=== PATIENT | female | born 1950 | race Caucasian/White ===

== ENCOUNTER 2017-02-28 11:02 | Emergency (ER) | payer MEDICARE, MEDICAID ==
[2017-02-28 11:21] VITALS: BP 137/80
--- NOTE | 2017-02-28 11:25 | EDM.PDOC ---
ED HPI GENERAL MEDICAL PROBLEM - General Chief Complaint: Lower Extremity Injury/Pain Stated Complaint: L KNEE PAIN AND SWELLING Time Seen by Provider: 02/28/17 11:22 Source of Information: Reports: Patient History Limitations: Reports: No Limitations - History of Present Illness INITIAL COMMENTS - FREE TEXT/NARRATIVE: 67-year-old female presents for evaluation and treatment of left knee pain and swelling. Reports her left knee pain started yesterday. She was favoring the left knee. She says that she went to dialysis today and the pain intensified. She also noticed swelling to the left knee. Reports that the pain is located to the left, anterior lateral aspect as well as the posterior medial aspect. She denies any trauma to the knee. She gets occasional pains in many but has never had anything like this before. Reports that she will occasionally get joint swelling and pain but it resolved on its own. She has taken Tylenol but the pain has intensified. She has been unable to bear weight due to the significant pain. She denies any redness or warmth to the knee. Denies any trauma or previous surgeries to the knee. Patient is a dialysis patient with a history of bladder cancer, atrial fibrillation, diabetes and arthritis. She is currently on Coumadin, aspirin and allopurinol among other medications. Duration: Getting Worse Location: Reports: Lower Extremity, Left Worsens with: Reports: Movement Treatments PIECE HAND: Reports: Acetaminophen Left Knee Pain Score (Numeric/FACES): 10 - Related Data Allergies Allergy/AdvReac Type Severity Reaction Status Date / Time ciprofloxacin [From Cipro] Allergy Blisters Verified 08/27/16 12:28 ciprofloxacin HCl Allergy Blisters Verified 08/27/16 12:28 [From Cipro] Home Meds: Home Meds Allopurinol [Zyloprim] 100 mg PO DAILY 10/08/14 [History] Darbepoetin Burke in Polysorbat [Aranesp] 50 mcg IJ ASDIRECTED 10/08/14 [History] Furosemide [Lasix] 40 mg PO BID 10/08/14 [History] Lisinopril 40 mg PO DAILY 10/08/14 [History] Metoprolol Tartrate 75 mg PO BID 10/08/14 [History] Pravastatin [Pravachol] 40 mg PO DAILY 10/08/14 [History] Vits #90/Iron Fum/FA [ Formula] 1 each PO DAILY 10/08/14 [ History] Verapamil HCl 360 mg PO DAILY 10/08/14 [History] amLODIPine [Norvasc] 5 mg PO DAILY 10/08/14 [History] Sodium Bicarbonate 648 mg PO DAILY 02/18/15 [History] Calcium Acetate [PhosLo] 2,001 mg PO ASDIRECTED 04/14/16 [History] Ferrous Sulfate 650 mg PO DAILY 04/14/16 [History] Iron Sucrose Complex [Venofer] 100 mg IV WEEKLY 04/14/16 [History] Paricalcitol 6 mcg IJ TUTHSA 04/14/16 [History] Acetaminophen 650 mg PO ASDIRECTED PRN 04/21/16 [History] Aspirin [Halfprin] 81 mg PO ASDIRECTED 04/21/16 [History] Cyanocobalamin (Vitamin B-12) [B-12] 500 mcg PO BID 04/21/16 [History] Acetaminophen/oxyCODONE [Percocet 325-5 MG] 1 tab PO Q6H PRN #20 tablet [Rx] Warfarin [Coumadin] 5 mg PO DAILY 02/28/17 [History] Past Medical History HEENT History: Reports: Impaired Vision Other HEENT History: wears eyeglasses Cardiovascular History: Reports: Afib, CAD, Heart Failure, High Cholesterol, Hypertension Respiratory History: Reports: SOB Other Respiratory History: Pt states the last couple month she's had more trouble breathing and fld. on her lungs. States worked at [employer] and worked with many chemicals. Gastrointestinal History: Reports: None Genitourinary History: Reports: Dialysis, Other (See Below) Other Genitourinary History: Bladder surgery [employer] History: Reports: Musculoskeletal History: Reports: Arthritis Neurological History: Reports: None Other Neuro History: Pt states she has a bad back but has never had surgery. Psychiatric History: Reports: None Other Psychiatric History: states was depressed when finding out of having cancer. Endocrine/Metabolic History: Reports: Diabetes, Type II, Obesity/BMI 30+ Other Endocrine/Metabolic History: Pt states DM II resolved since gastric bypass surgery. Hematologic History: Reports: Anemia Other Hematologic History: Pt thinks anesthesia may have caused sports on her arms. Immunologic History: Reports: None Oncologic (Cancer) History: Reports: Bladder Other Oncologic History: Pt completed chemo. Dermatologic History: Reports: Other (See Below) Other Dermatologic History: bed sore on cocyx - Infectious Disease History Infectious Disease History: Reports: C-Difficile, Chicken Pox, Measles, Rheumatic Fever, Scarlet Fever - Past Surgical History Head Surgeries/Procedures: Reports: None Cardiovascular Surgical History: Reports: Coronary Artery Stent, Vascular Surgery GI Surgical History: Reports: Bariatric Procedure, Other (See Below) Female Surgical History: Reports: Section, Hysterectomy, Oophorectomy Social & Family History - Family History Family Medical History: Noncontributory Cardiac: Reports: Aneurysm, [place] Other Cardiac Family History: Father of [place]. Sister of aneurysm. - Tobacco Use Smoking Status *Q: Never Smoker Years of Tobacco use: 20 Packs/Tins Daily: 1.3 Used Tobacco, but Quit: Yes Month Tobacco Last Used: 1996 Second Hand Smoke Exposure: No - Caffeine Use Caffeine Use: Reports: Coffee - Alcohol Use Days Per Week of Alcohol Use: 0 - Recreational Drug Use Recreational Drug Use: No - Living Situation & Occupation Living situation: Reports: , Alone Occupation: Disabled Review of Systems - Review of Systems Review Of Systems: See Below Musculoskeletal: Reports: Joint Pain (left knee), Joint Swelling (left knee), Other (no calf pain) Skin: Denies: Erythema Neurological: Reports: Difficulty Walking (unable to walk due to pain) Trauma Exam - Physical Exam Exam: See Below Exam Limited By: No Limitations General Appearance: Reports: Alert, WD/WN, No Apparent Distress Respiratory Exam: Reports: No Respiratory Distress Cardiovascular: Reports: Normal Peripheral Pulses (2+ dorsalis pedis pulses bilterally), Regular Rate, Rhythm Extremities: Joint Effusion (left knee), Pain with Movement (pain with flexion and extension of the knee), Tenderness (left anterior lateral knee and posterior medial aspect), Unable to Bear Weight (initally, improved after percoocet ), Other (right knee measures 46 cm in the flexed position; left knee is 50cm in the flexed position) Neurologic: Reports: Alert, Normal Mood/Affect Skin: Reports: Normal Color, Warm/Dry Course - Vital Signs Last Recorded V/S: Last Vital Signs Temp 36.9 C 02/28/17 11:18 Pulse 67 02/28/17 11:18 Resp 20 02/28/17 11:18 BP 137/80 02/28/17 11:18 Pulse Ox 96 02/28/17 11:18 - Orders/Labs/Meds Labs: Laboratory Tests 02/28/17 02/28/17 02/28/17 Range/Units 11:51 11:55 11:55 WBC 3.27 L (3.98-10.04) K/mm3 RBC 3.14 L (3.98-5.22) M/mm3 Hgb 10.1 L (11.2-15.7) gm/L Hct 33.0 L (34.1-44.9) % MCV 105.1 H (79.4-94.8) fl MCH 32.2 (25.6-32.2) pg MCHC 30.6 L (32.2-35.5) g/dl RDW Std Deviation 49.2 H (36.4-46.3) fL Plt Count 176 L (182-369) K/mm3 MPV 9.3 L (9.4-12.3) fl Neut % (Auto) 76.7 H (34.0-71.1) % Lymph % (Auto) 8.6 L (19.3-51.7) % [place] % (Auto) 11.3 (4.7-12.5) % Eos % (Auto) 2.8 (0.7-5.8) Baso % (Auto) 0.3 (0.1-1.2) % Neut # (Auto) 2.51 (1.56-6.13) K/mm3 Lymph # (Auto) 0.28 L (1.18-3.74) K/mm3 [place] # (Auto) 0.37 H (0.24-0.36) K/mm3 Eos # (Auto) 0.09 (0.04-0.36) K/mm3 Baso # (Auto) 0.01 (0.01-0.08) K/mm3 Manual Slide Review PT 14.3 H (8.0-13.0) SECONDS INR 1.29 Sodium (136-145) mEq/L Potassium (3.5-5.1) mEq/L Chloride (98-107) mEq/L Carbon Dioxide (21-32) mEq/L Anion Gap (5-15) BUN (7-18) mg/dL Creatinine (0.55-1.02) mg/dL Est Cr Clr Drug Dosing mL/min Estimated GFR (MDRD) (>60) mL/min BUN/Creatinine Ratio (14-18) Glucose (80-115) mg/dL POC Glucose 104 (80-115) mg/dL Uric Acid (2.6-6.0) mg/dL Calcium (8.5-10.1) mg/dL Total Bilirubin (0.2-1.0) mg/dL AST (15-37) U/L ALT (14-59) U/L Alkaline Phosphatase (46-116) U/L C-Reactive Protein (<1.0) mg/dL Total Protein (6.4-8.2) g/dl Albumin (3.4-5.0) g/dl Globulin gm/dL Albumin/Globulin Ratio (1-2) // Range/Units 11:55 WBC (3.98-10.04) K/mm3 RBC (3.98-5.22) M/mm3 Hgb (11.2-15.7) gm/L Hct (34.1-44.9) % MCV (79.4-94.8) fl MCH (25.6-32.2) pg MCHC (32.2-35.5) g/dl RDW Std Deviation (36.4-46.3) fL Plt Count (182-369) K/mm3 MPV (9.4-12.3) fl Neut % (Auto) (34.0-71.1) % Lymph % (Auto) (19.3-51.7) % [place] % (Auto) (4.7-12.5) % Eos % (Auto) (0.7-5.8) Baso % (Auto) (0.1-1.2) % Neut # (Auto) (1.56-6.13) K/mm3 Lymph # (Auto) (1.18-3.74) K/mm3 [place] # (Auto) (0.24-0.36) K/mm3 Eos # (Auto) (0.04-0.36) K/mm3 Baso # (Auto) (0.01-0.08) K/mm3 Manual Slide Review PT (8.0-13.0) SECONDS INR Sodium 141 (136-145) mEq/L Potassium 4.2 (3.5-5.1) mEq/L Chloride 99 (98-107) mEq/L Carbon Dioxide 35 H (21-32) mEq/L Anion Gap 11.2 (5-15) BUN 21 H (7-18) mg/dL Creatinine 2.8 H (0.55-1.02) mg/dL Est Cr Clr Drug Dosing 18.02 mL/min Estimated GFR (MDRD) 17 (>60) mL/min BUN/Creatinine Ratio 7.5 L (14-18) Glucose 102 (80-115) mg/dL POC Glucose (80-115) mg/dL Uric Acid 1.9 L (2.6-6.0) mg/dL Calcium 8.5 (8.5-10.1) mg/dL Total Bilirubin 0.5 (0.2-1.0) mg/dL AST 28 (15-37) U/L ALT 27 (14-59) U/L Alkaline Phosphatase 81 (46-116) U/L C-Reactive Protein 3.4 H* (<1.0) mg/dL Total Protein 7.2 (6.4-8.2) g/dl Albumin 3.4 (3.4-5.0) g/dl Globulin 3.8 gm/dL Albumin/Globulin Ratio 0.9 L (1-2) Meds: Medications Discontinued Medications Generic Name Dose Route Start Last Admin Trade Name Randa PRN Reason Stop Dose Admin Oxycodone/Acetaminophen 1 tab 02/28/17 11:36 02/28/17 11:52 Percocet 325-5 Mg PO 02/28/17 11:37 1 tab ONETIME ONE Administration - Radiology Interpretation Free Text/Narrative:: 3 view of the left knee reviewed by myself and Dr. Wiley. Degenerative changes. High riding patella. calcified vessels. - Re-Assessments/Exams Free Text/Narrative Re-Assessment/Exam: 02/28/17 13:20 The patient's lab studies have returned. White blood cell count 3.27, hemoglobin 10.1 and hematocrit 33.0. Platelets are 176. Sodium 141 potassium 4.2 chloride of 99. Anion gap is low at 1.2. Creatinine is 2.8. Glucose is 102. CRP is mildly elevated at 3.4. Uric acid is low at 1.9. PT is 14.3, INR 1.29. I reviewed the lab and imaging results with the patient. I do not feel that she ruptured her quadriceps tendon which is causing a high riding patella. I feel this is likely a chronic change for her. Her knee shows severe degenerative change and I feel that the arthritis is likely the cause for the effusion and pain today. She has a walker at home which she can utilize if she needs. I will prescribe her with some medication for the pain. I would like her to follow up with her PCP, she may likely need to see ortho in the future. Discharge instructions as documented. 03/03/17 14:12 Departure - Departure Time of Disposition: 13:27 Disposition: Home, Self-Care 01 Condition: fair Clinical Impression: Knee effusion, left, Degenerative arthritis of left knee - Discharge Information Prescriptions: Acetaminophen/oxyCODONE [Percocet 325-5 MG] 1 tab PO Q6H PRN #20 tablet PRN Reason: Pain Instructions: Knee Effusion, [id number], Arthritis, [id number] Referrals: Denny Balderas MD [Primary Care Provider] - Forms: ED Department Discharge Additional Instructions: You were given medication in the ER that can affect your ability to drive and operate machinery. No driving or operating machinery within 12 hours of taking prescription narcotic pain medication. Use your walker for safety and for comfort. Ice the knee 3 to 4 times a day for 10-15 minutes. Followup primary care provider in one to 2 weeks if your symptoms do not improve. EDINSON bandage to the knee to help with swelling. Percocet 5-325mg tabs1-2 tabs every 4-6 hours as needed for severe pain. Do not drive or operate machinery 12 hours of taking the Percocet. Percocet habit- forming, I recommend you take as few of these as needed to control your pain. Do not take more than 4 g of Tylenol from all sources in one day. Please return to the ER if your symptoms change or worsen.
[2017-02-28] MEDS ORDERED: Acetaminophen/oxyCODONE 325-5 MG Tab PO ONE (11:36)
--- NOTE | 2017-03-01 08:17 | CR ---
Left knee: AP, lateral and sunrise patellar views of the left knee were obtained. Comparison: No previous knee exam is available. Mild medial joint space narrowing is noted. Severe joint space narrowing is noted within the lateral patellofemoral joint. Osteophytes are noted off the medial and lateral knee as well as off the patella. Detached bony density seen off the lateral patella likely representing detached spur or old fracture. Bony structures are osteopenic. Small joint effusion is seen. Vascular calcification is noted. No acute abnormality is seen. Impression: 1. Degenerative change as noted above. Small joint effusion and vascular calcification. Osteopenia also noted. Diagnostic code #3
== END 2017-02-28 13:48 | disposition home or self-care (01) ==
LOC: JD.ED 11:02
DX: M25.462 Effusion, left knee (principal); M17.12 Unilateral primary osteoarthritis, left knee; I11.0 Hypertensive heart disease with heart failure; I50.9 Heart failure, unspecified; I25.10 Atherosclerotic heart disease of native coronary artery without angina pectoris; I48.91 Unspecified atrial fibrillation; M19.90 Unspecified osteoarthritis, unspecified site; F32.9 Major depressive disorder, single episode, unspecified; E11.9 Type 2 diabetes mellitus without complications; E66.9 Obesity, unspecified; Z88.1 Allergy status to other antibiotic agents; Z79.899 Other long term (current) drug therapy; Z79.01 Long term (current) use of anticoagulants; Z90.710 Acquired absence of both cervix and uterus; Z68.30 Body mass index [BMI] 30.0-30.9, adult
CPT/HCPCS: 36415; 73562; 80053; 82962; 84550; 85025; 85610; 86140; 99284; A9270; 99283

== ENCOUNTER 2017-10-09 17:41 | Emergency (ER) | payer MEDICARE, MEDICAID ==
[2017-10-09] MEDS ORDERED: Sodium Chloride 0.9% 10 ML Syringe FLUSH PRN (18:32)
--- NOTE | 2017-10-09 20:21 | EDM.PDOC ---
ED HPI GENERAL MEDICAL PROBLEM - General Chief Complaint: Cardiovascular Problem Stated Complaint: LOW HEMOGLOBIN SENT BY DR LIRA Time Seen by Provider: 10/09/17 18:10 Source of Information: Reports: Patient, Old Records History Limitations: Reports: No Limitations - History of Present Illness INITIAL COMMENTS - FREE TEXT/NARRATIVE: 67-year-old female presents for evaluation and treatment of the low hemoglobin. Patient is chronically ill with kidney failure and bladder cancer. She is on dialysis with her runs on Thursday, and Thursday. She states that she had her labs drawn yesterday while at dialysis. She was called today and was told that her hemoglobin was 6. Reports her hemoglobin normally runs around 8. She reports associated symptoms of weakness, fatigue, dyspnea on exertion and vision changes. She states she experiences vision changes when her hemoglobin is low. She reports she's been having hematuria for the last few weeks. She has been on antibiotics for urinary tract infections or hematuria has persisted. No shortness of breath, worse than normal, chest pain or syncope. Patient was previously on Coumadin for atrial fibrillation. She has now been off for several weeks due to the hematuria. - Related Data Allergies Allergy/AdvReac Type Severity Reaction Status Date / Time ciprofloxacin [From Cipro] Allergy Blisters Verified 08/27/16 12:28 ciprofloxacin HCl Allergy Blisters Verified 08/27/16 12:28 [From Cipro] Home Meds: Home Meds Allopurinol [Zyloprim] 100 mg PO DAILY 10/08/14 [History] Darbepoetin Burke in Polysorbat [Aranesp] 50 mcg IJ ASDIRECTED 10/08/14 [History] Furosemide [Lasix] 40 mg PO BID 10/08/14 [History] Lisinopril 40 mg PO DAILY 10/08/14 [History] Metoprolol Tartrate 75 mg PO BID 10/08/14 [History] Pravastatin [Pravachol] 40 mg PO DAILY 10/08/14 [History] Vit 90/Iron Fum/Folic [ Formula] 1 each PO DAILY 10/08/14 [ History] Verapamil HCl 360 mg PO DAILY 10/08/14 [History] amLODIPine [Norvasc] 5 mg PO DAILY 10/08/14 [History] Sodium Bicarbonate 648 mg PO DAILY 02/18/15 [History] Calcium Acetate [PhosLo] 2,001 mg PO ASDIRECTED 04/14/16 [History] Ferrous Sulfate 650 mg PO DAILY 04/14/16 [History] Iron Sucrose Complex [Venofer] 100 mg IV WEEKLY 04/14/16 [History] Paricalcitol 6 mcg IJ TUTHSA 04/14/16 [History] Acetaminophen 650 mg PO ASDIRECTED PRN 04/21/16 [History] Aspirin [Halfprin] 81 mg PO ASDIRECTED 04/21/16 [History] Cyanocobalamin (Vitamin B-12) [B-12] 500 mcg PO BID 04/21/16 [History] Acetaminophen/oxyCODONE [Percocet 325-5 MG] 1 tab PO Q6H PRN #20 tablet [Rx] Warfarin [Coumadin] 5 mg PO DAILY 02/28/17 [History] Past Medical History HEENT History: Reports: Impaired Vision Other HEENT History: wears eyeglasses Cardiovascular History: Reports: Afib, CAD, Heart Failure, High Cholesterol, Hypertension Respiratory History: Reports: SOB Other Respiratory History: Pt states the last couple month she's had more trouble breathing and fld. on her lungs. States worked at [employer] and worked with many chemicals. Gastrointestinal History: Reports: None Genitourinary History: Reports: Dialysis, Other (See Below) Other Genitourinary History: Bladder surgery [employer] History: Reports: Musculoskeletal History: Reports: Arthritis Neurological History: Reports: None Other Neuro History: Pt states she has a bad back but has never had surgery. Psychiatric History: Reports: None Other Psychiatric History: states was depressed when finding out of having cancer. Endocrine/Metabolic History: Reports: Diabetes, Type II, Obesity/BMI 30+ Other Endocrine/Metabolic History: Pt states DM II resolved since gastric bypass surgery. Hematologic History: Reports: Anemia, Blood Transfusion(s) Other Hematologic History: Pt thinks anesthesia may have caused sports on her arms. Immunologic History: Reports: None Oncologic (Cancer) History: Reports: Bladder Other Oncologic History: Pt completed chemo/radiation. Dermatologic History: Reports: Other (See Below) Other Dermatologic History: bed sore on cocyx - Infectious Disease History Infectious Disease History: Reports: C-Difficile, Chicken Pox, Measles, Rheumatic Fever, Scarlet Fever - Past Surgical History Head Surgeries/Procedures: Reports: None Cardiovascular Surgical History: Reports: Coronary Artery Stent, Vascular Surgery GI Surgical History: Reports: Bariatric Procedure, Other (See Below) Female Surgical History: Reports: Section, Hysterectomy, Oophorectomy Social & Family History - Family History Family Medical History: Noncontributory Cardiac: Reports: Aneurysm, [place] Other Cardiac Family History: Father of [place]. Sister of aneurysm. - Tobacco Use Smoking Status *Q: Never Smoker Years of Tobacco use: 20 Packs/Tins Daily: 1.3 Used Tobacco, but Quit: Yes Month Tobacco Last Used: 1996 Second Hand Smoke Exposure: No - Caffeine Use Caffeine Use: Reports: Coffee - Alcohol Use Days Per Week of Alcohol Use: 0 - Recreational Drug Use Recreational Drug Use: No - Living Situation & Occupation Living situation: Reports: , Alone Occupation: Disabled ED ROS GENERAL - Review of Systems Review Of Systems: See Below HEENT: Reports: Vision Change Respiratory: Reports: Shortness of Breath (chronic, no change) Cardiovascular: Denies: Chest Pain, Syncope : Reports: Hematuria Neurological: Denies: Syncope ED EXAM, GENERAL - Physical Exam Exam: See Below Exam Limited By: No Limitations General Appearance: Alert, WD/WN, No Apparent Distress, Obese Respiratory/Chest: No Respiratory Distress, Lungs Clear, Normal Breath Sounds Cardiovascular: Normal Peripheral Pulses, Regular Rate, Rhythm, Systolic Murmur (grade 2) GI/Abdominal: Soft, Non-Tender Neurological: Alert, Oriented, Normal Cognition Psychiatric: Normal Affect, Normal Mood Skin Exam: Warm, Dry, Pallor Course - Vital Signs Last Recorded V/S: Last Vital Signs Temp 36.3 C 10/09/17 17:50 Pulse 79 10/09/17 17:50 Resp 16 10/09/17 17:50 BP 116/60 10/09/17 17:50 Pulse Ox 97 10/09/17 17:50 Orthostatic Blood Pressure [ 102/56 Standing] Orthostatic Blood Pressure [ 110/58 Sitting] Orthostatic Blood Pressure [ 102/54 Supine] - Orders/Labs/Meds Orders: Active Orders 24 hr Category Date Time Status Cardiac Monitoring [RC] . DIRECTED Care 10/09/17 19:46 Active EKG 12 Lead [EKG Documentation Completion] [RC] STAT Care 10/09/17 19:46 Active Orthostatic Vital Signs [RC] ASDIRECTED Care 10/09/17 18:32 Active Peripheral IV Care [RC] . DIRECTED Care 10/09/17 18:32 Active CALCIUM, IONIZED [REF] Stat Lab 10/09/17 19:50 Received UA W/MICROSCOPIC [URIN] Stat Lab 10/09/17 18:32 Uncollected Sodium Chloride 0.9% [Saline Flush] Med 10/09/17 18:32 Active 10 ml FLUSH ASDIRECTED PRN Peripheral IV Insertion Adult [OM.PC] Routine Oth 10/09/17 18:32 Ordered Medication Orders Sodium Chloride (Saline Flush) 10 ml FLUSH ASDIRECTED PRN PRN Reason: Keep Vein Open Labs: Laboratory Tests 10/09/17 10/09/17 10/09/17 Range/Units 18:55 18:55 18:55 WBC 3.45 L (3.98-10.04) K/mm3 RBC 1.96 L (3.98-5.22) M/mm3 Hgb 6.5 L* (11.2-15.7) gm/L Hct 21.2 L (34.1-44.9) % MCV 108.2 H (79.4-94.8) fl MCH 33.2 H (25.6-32.2) pg MCHC 30.7 L (32.2-35.5) g/dl RDW Std Deviation 65.1 H (36.4-46.3) fL Plt Count 193 (182-369) K/mm3 MPV 9.0 L (9.4-12.3) fl Neutrophils % (Manual) 73 H (40-60) % Band Neutrophils % 1 (0-10) % Lymphocytes % (Manual) 19 L (20-40) % Atypical Lymphs % 0 % Monocytes % (Manual) 4 (2-10) % Eosinophils % (Manual) 2 (0.7-5.8) % Basophils % (Manual) 1 (0.1-1.2) Platelet Estimate Adequate Polychromasia 2+ moderate Hypochromasia 1+ slight Anisocytosis 2+ moderate Macrocytosis 1+ slight RBC Morph Comment Not Reportable PT 9.9 (8.0-13.0) SECONDS INR 0.91 Sodium 138 (136-145) mEq/L Potassium 4.6 (3.5-5.1) mEq/L Chloride 96 L (98-107) mEq/L Carbon Dioxide 26 (21-32) mEq/L Anion Gap 20.6 H (5-15) BUN 68 H (7-18) mg/dL Creatinine 8.2 H (0.55-1.02) mg/dL Est Cr Clr Drug Dosing 6.40 mL/min Estimated GFR (MDRD) 5 (>60) mL/min BUN/Creatinine Ratio 8.3 L (14-18) Glucose 98 (80-115) mg/dL Calcium 5.8 L* (8.5-10.1) mg/dL Phosphorus (2.6-4.7) mg/dL Magnesium (1.8-2.4) mg/dl Total Bilirubin 0.3 (0.2-1.0) mg/dL AST 27 (15-37) U/L ALT 34 (14-59) U/L Alkaline Phosphatase 84 (46-116) U/L Total Protein 6.7 (6.4-8.2) g/dl Albumin 3.4 (3.4-5.0) g/dl Globulin 3.3 gm/dL Albumin/Globulin Ratio 1.0 (1-2) 10/09/17 Range/Units 18:55 WBC (3.98-10.04) K/mm3 RBC (3.98-5.22) M/mm3 Hgb (11.2-15.7) gm/L Hct (34.1-44.9) % MCV (79.4-94.8) fl MCH (25.6-32.2) pg MCHC (32.2-35.5) g/dl RDW Std Deviation (36.4-46.3) fL Plt Count (182-369) K/mm3 MPV (9.4-12.3) fl Neutrophils % (Manual) (40-60) % Band Neutrophils % (0-10) % Lymphocytes % (Manual) (20-40) % Atypical Lymphs % % Monocytes % (Manual) (2-10) % Eosinophils % (Manual) (0.7-5.8) % Basophils % (Manual) (0.1-1.2) Platelet Estimate Polychromasia Hypochromasia Anisocytosis Macrocytosis RBC Morph Comment PT (8.0-13.0) SECONDS INR Sodium (136-145) mEq/L Potassium (3.5-5.1) mEq/L Chloride (98-107) mEq/L Carbon Dioxide (21-32) mEq/L Anion Gap (5-15) BUN (7-18) mg/dL Creatinine (0.55-1.02) mg/dL Est Cr Clr Drug Dosing mL/min Estimated GFR (MDRD) (>60) mL/min BUN/Creatinine Ratio (14-18) Glucose (80-115) mg/dL Calcium (8.5-10.1) mg/dL Phosphorus 8.1 H (2.6-4.7) mg/dL Magnesium 1.9 (1.8-2.4) mg/dl Total Bilirubin (0.2-1.0) mg/dL AST (15-37) U/L ALT (14-59) U/L Alkaline Phosphatase (46-116) U/L Total Protein (6.4-8.2) g/dl Albumin (3.4-5.0) g/dl Globulin gm/dL Albumin/Globulin Ratio (1-2) Meds: Medications Generic Name Dose Route Start Last Admin Trade Name Freq PRN Reason Stop Dose Admin Sodium Chloride 10 ml 10/09/17 18:32 Saline Flush FLUSH ASDIRECTED PRN Keep Vein Open Discontinued Medications Generic Name Dose Route Start Last Admin Trade Name Freq PRN Reason Stop Dose Admin Calcium Gluconate 1 gm 10/09/17 20:32 Calcium Gluconate IVPUSH 10/09/17 20:33 ONETIME ONE Calcium Gluconate 1 gm 10/09/17 20:45 Calcium Gluconate IVPUSH 10/09/17 20:46 ONETIME ONE - Re-Assessments/Exams Free Text/Narrative Re-Assessment/Exam: 10/09/17 20:[address] Orosco, ER physician, recommended giving 2 grams calcium gluconate IV. Given that patient is showing prolonged QT on EKG do feel she should be admitted. Due to her being on dialysis and having antibodies to blood she will not be a good admission here in [place]. I discussed this with her. Reports she's been admitted to [facility] in [place] in the past. Her urologist is Dr. Ulrich. Case discussed with Dr. Fontanez, hospitalist on-call at [facility] in [place]. She agrees to the admission. We will send her by ground ambulance so she can have cardiac monitoring. Patient reports she is a full code. Departure - Departure Time of Disposition: 20:55 Disposition: DC/Tfer to Acute Hospital 02 Reason for Transfer *Q: Other (antibiodies to blood, dialysis patient) Condition: Serious Clinical Impression: Hypocalcemia, Prolonged QT interval, Chronic renal insufficiency, stage IV ( severe), End stage renal disease on dialysis Anemia Qualifiers: Anemia type: other cause Referrals: Denny Lira MD [Primary Care Provider] - Forms: ED Department Discharge Additional Instructions: Patient to be transported to [facility]. Dr. Fontanez accepting. She will be a direct admission. - My Orders Last 24 Hours: My Active Orders 10/09/17 18:32 Orthostatic Vital Signs [RC] ASDIRECTED Peripheral IV Care [RC] . DIRECTED UA W/MICROSCOPIC [URIN] Stat Sodium Chloride 0.9% [Saline Flush] 10 ml FLUSH ASDIRECTED PRN Peripheral IV Insertion Adult [OM.PC] Routine 10/09/17 19:46 Cardiac Monitoring [RC] . DIRECTED EKG 12 Lead [EKG Documentation Completion] [RC] STAT 10/09/17 19:50 CALCIUM, IONIZED [REF] Stat - Assessment/Plan Last 24 Hours: My Active Orders 10/09/17 18:32 Orthostatic Vital Signs [RC] ASDIRECTED Peripheral IV Care [RC] . DIRECTED UA W/MICROSCOPIC [URIN] Stat Sodium Chloride 0.9% [Saline Flush] 10 ml FLUSH ASDIRECTED PRN Peripheral IV Insertion Adult [OM.PC] Routine 10/09/17 19:46 Cardiac Monitoring [RC] . DIRECTED EKG 12 Lead [EKG Documentation Completion] [RC] STAT 10/09/17 19:50 CALCIUM, IONIZED [REF] Stat
[2017-10-09] MEDS ORDERED: Calcium Gluconate 10% 1 GM/10 ML SDV IVPUSH ONE ×2 (20:32→20:45)
[2017-10-09] MEDS ORDERED: Sodium Chloride 0.9% 100 ML IV SCH (21:00)
[2017-10-09 21:39] VITALS: BP 115/46
== END 2017-10-09 21:25 ==
LOC: JD.ED 17:41
DX: I13.2 Hypertensive heart and chronic kidney disease with heart failure and with stage 5 chronic kidney disease, or end stage renal disease (principal); E11.22 Type 2 diabetes mellitus with diabetic chronic kidney disease; N18.6 End stage renal disease; I50.9 Heart failure, unspecified; D64.9 Anemia, unspecified; E83.51 Hypocalcemia; I25.10 Atherosclerotic heart disease of native coronary artery without angina pectoris; E78.00 Pure hypercholesterolemia, unspecified; Z99.2 Dependence on renal dialysis; Z95.5 Presence of coronary angioplasty implant and graft; Z87.891 Personal history of nicotine dependence; Z79.82 Long term (current) use of aspirin; Z79.01 Long term (current) use of anticoagulants; Z79.899 Other long term (current) drug therapy; Z88.1 Allergy status to other antibiotic agents
CPT/HCPCS: 36415; 80053; 82330; 83735; 84100; 85025; 85610; 93005; 96374; 99285; J0610; J7030; J7050

== ENCOUNTER 2017-11-03 12:33 | Emergency (ER) | payer MEDICARE, MEDICAID ==
[2017-11-03 12:55] VITALS: BP 106/82
--- NOTE | 2017-11-03 14:07 | EDM.PDOC ---
ED HPI GENERAL MEDICAL PROBLEM - General Chief Complaint: IV Access Related Stated Complaint: BLEEDING FROM DIALYSIS Time Seen by Provider: 11/03/17 12:53 Source of Information: Reports: Patient History Limitations: Reports: No Limitations - History of Present Illness INITIAL COMMENTS - FREE TEXT/NARRATIVE: The patient presents after dialysis for a bleeding shunt to her left arm. She left a few minutes ago and it was bleeding and it has continued. She could not get it stopped. She has no other complaints. Onset: Sudden Duration: Minutes: Location: Reports: Upper Extremity, Right (upper arm) Severity: Moderate Improves with: Reports: None Worsens with: Reports: None Associated Symptoms: Reports: No Other Symptoms - Related Data Allergies Allergy/AdvReac Type Severity Reaction Status Date / Time ciprofloxacin [From Cipro] Allergy Blisters Verified 11/03/17 12:49 ciprofloxacin HCl Allergy Blisters Verified 11/03/17 12:49 [From Cipro] Home Meds: Home Meds Allopurinol [Zyloprim] 100 mg PO DAILY 10/08/14 [History] Darbepoetin Burke in Polysorbat [Aranesp] 50 mcg IJ ASDIRECTED 10/08/14 [History] Furosemide [Lasix] 40 mg PO BID 10/08/14 [History] Lisinopril 40 mg PO DAILY 10/08/14 [History] Metoprolol Tartrate 75 mg PO BID 10/08/14 [History] Pravastatin [Pravachol] 40 mg PO DAILY 10/08/14 [History] Vit 90/Iron Fum/Folic [ Formula] 1 each PO DAILY 10/08/14 [ History] Verapamil HCl 360 mg PO DAILY 10/08/14 [History] amLODIPine [Norvasc] 5 mg PO DAILY 10/08/14 [History] Sodium Bicarbonate 648 mg PO DAILY 02/18/15 [History] Calcium Acetate [PhosLo] 2,001 mg PO ASDIRECTED 04/14/16 [History] Ferrous Sulfate 650 mg PO DAILY 04/14/16 [History] Iron Sucrose Complex [Venofer] 100 mg IV WEEKLY 04/14/16 [History] Paricalcitol 6 mcg IJ TUTHSA 04/14/16 [History] Acetaminophen 650 mg PO ASDIRECTED PRN 04/21/16 [History] Aspirin [Halfprin] 81 mg PO ASDIRECTED 04/21/16 [History] Cyanocobalamin (Vitamin B-12) [B-12] 500 mcg PO BID 04/21/16 [History] Acetaminophen/oxyCODONE [Percocet 325-5 MG] 1 tab PO Q6H PRN #20 tablet [Rx] Warfarin [Coumadin] 5 mg PO DAILY 02/28/17 [History] Past Medical History HEENT History: Reports: Impaired Vision Other HEENT History: wears eyeglasses Cardiovascular History: Reports: Afib, CAD, Heart Failure, High Cholesterol, Hypertension Respiratory History: Reports: SOB Other Respiratory History: Pt states the last couple month she's had more trouble breathing and fld. on her lungs. 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 Gastrointestinal History: Reports: None Genitourinary History: Reports: Dialysis, Other (See Below) Other Genitourinary History: Bladder surgery [employer] History: Reports: Musculoskeletal History: Reports: Arthritis Neurological History: Reports: None Other Neuro History: Pt states she has a bad back but has never had surgery. Psychiatric History: Reports: None Other Psychiatric History: states was depressed when finding out of having cancer. Endocrine/Metabolic History: Reports: Diabetes, Type II, Obesity/BMI 30+ Other Endocrine/Metabolic History: Pt states DM II resolved since gastric bypass surgery. Hematologic History: Reports: Anemia, Blood Transfusion(s) Other Hematologic History: Pt thinks anesthesia may have caused sports on her arms. Immunologic History: Reports: None Oncologic (Cancer) History: Reports: Bladder Other Oncologic History: Pt completed chemo/radiation. Dermatologic History: Reports: Other (See Below) Other Dermatologic History: bed sore on cocyx - Infectious Disease History Infectious Disease History: Reports: C-Difficile, Chicken Pox, Measles, Rheumatic Fever, Scarlet Fever - Past Surgical History Head Surgeries/Procedures: Reports: None Cardiovascular Surgical History: Reports: Coronary Artery Stent, Vascular Surgery GI Surgical History: Reports: Bariatric Procedure, Other (See Below) Female Surgical History: Reports: Section, Hysterectomy, Oophorectomy Social & Family History - Family History Family Medical History: Noncontributory Cardiac: Reports: Aneurysm, [place] Other Cardiac Family History: Father of [place]. Sister of aneurysm. - Tobacco Use Smoking Status *Q: Never Smoker Years of Tobacco use: 20 Packs/Tins Daily: 1.3 Used Tobacco, but Quit: Yes Month Tobacco Last Used: 1996 Second Hand Smoke Exposure: No - Caffeine Use Caffeine Use: Reports: Coffee - Alcohol Use Days Per Week of Alcohol Use: 0 - Recreational Drug Use Recreational Drug Use: No - Living Situation & Occupation Living situation: Reports: , Alone Occupation: Disabled ED ROS GENERAL - Review of Systems Review Of Systems: See Below Constitutional: Reports: No Symptoms HEENT: Reports: No Symptoms Respiratory: Reports: No Symptoms Cardiovascular: Reports: No Symptoms Endocrine: Reports: No Symptoms GI/Abdominal: Reports: No Symptoms : Reports: No Symptoms Musculoskeletal: Reports: Other (Bleeding from shunt in left arm) ED EXAM, GENERAL - Physical Exam Exam: See Below Exam Limited By: No Limitations General Appearance: Alert, No Apparent Distress Ears: Normal External Exam Nose: Normal Inspection Head: Atraumatic, Normocephalic Neck: Normal Inspection Respiratory/Chest: No Respiratory Distress Extremities: Other (Pulsating bleeding from her shunt in her left arm) Course - Vital Signs Last Recorded V/S: Last Vital Signs Temp 99.0 F 11/03/17 12:49 Pulse 81 11/03/17 12:49 Resp 18 11/03/17 12:49 BP 106/82 11/03/17 12:49 Pulse Ox 99 11/03/17 12:49 - Orders/Labs/Meds Labs: Laboratory Tests 11/03/17 11/03/17 Range/Units 13:50 13:50 WBC 5.33 (3.98-10.04) K/mm3 RBC 3.12 L (3.98-5.22) M/mm3 Hgb 10.1 L (11.2-15.7) gm/L Hct 32.8 L (34.1-44.9) % MCV 105.1 H (79.4-94.8) fl MCH 32.4 H (25.6-32.2) pg MCHC 30.8 L (32.2-35.5) g/dl RDW Std Deviation 57.5 H (36.4-46.3) fL Plt Count 308 (182-369) K/mm3 MPV 9.3 L (9.4-12.3) fl Neutrophils % (Manual) 81 H (40-60) % Band Neutrophils % 0 (0-10) % Lymphocytes % (Manual) 11 L (20-40) % Atypical Lymphs % 0 % Monocytes % (Manual) 5 (2-10) % Eosinophils % (Manual) 2 (0.7-5.8) % Basophils % (Manual) 1 (0.1-1.2) Platelet Estimate Adequate Plt Morphology Comment Normal Macrocytosis 1+ slight RBC Morph Comment Not Reportable PT 44.4 H (8.0-13.0) SECONDS INR 3.74 - Re-Assessments/Exams Free Text/Narrative Re-Assessment/Exam: 11/03/17 14:36 My nurse held direct pressure on the shunt and it stopped. She had good pulses distally. 11/03/17 14:36 Her Hgb was a little low at 10.1. Her INR was 3.74. She will follow up with her doctor. Departure - Departure Time of Disposition: 14:05 Disposition: Home, Self-Care 01 Condition: Good Clinical Impression: Bleeding from dialysis shunt Qualifiers: Encounter type: initial encounter Qualified Code(s): T82.838A - Hemorrhage due to vascular prosthetic devices, implants and grafts, initial encounter - Discharge Information Instructions: Dialysis Vascular Access Malfunction Referrals: Denny Balderas MD [Primary Care Provider] - Forms: ED Department Discharge Additional Instructions: Please return if you are worse.
== END 2017-11-03 14:31 | disposition home or self-care (01) ==
LOC: JD.ED 12:33
DX: T82.838A Hemorrhage due to vascular prosthetic devices, implants and grafts, initial encounter (principal); I11.0 Hypertensive heart disease with heart failure; I25.10 Atherosclerotic heart disease of native coronary artery without angina pectoris; I50.9 Heart failure, unspecified; Z85.51 Personal history of malignant neoplasm of bladder; Z87.891 Personal history of nicotine dependence; Z96.0 Presence of urogenital implants; Z95.5 Presence of coronary angioplasty implant and graft; Z79.82 Long term (current) use of aspirin; Z79.01 Long term (current) use of anticoagulants; Z79.899 Other long term (current) drug therapy; Z88.1 Allergy status to other antibiotic agents
CPT/HCPCS: 36415; 85025; 85610; 99282; 99284

== ENCOUNTER 2017-12-08 12:44 | Emergency (ER) | payer MEDICARE, MEDICAID ==
[2017-12-08] MEDS ORDERED: Sodium Chloride 0.9% 10 ML Syringe FLUSH PRN (13:34)
--- NOTE | 2017-12-08 13:52 | EDM.PDOC ---
ED HPI GENERAL MEDICAL PROBLEM - General Chief Complaint: Gastrointestinal Problem Stated Complaint: LOW HEMOGLOBIN Time Seen by Provider: 12/08/17 13:17 Source of Information: Reports: Patient History Limitations: Reports: No Limitations - History of Present Illness INITIAL COMMENTS - FREE TEXT/NARRATIVE: Patient 67-year-old dialysis patient who presents to the ED feeling like her hemoglobin is low. States she feels a bit weak and dizzy with standing. States she has some hot and cold flashes as well. She just recently completed dialysis and they took in total approximately 2 kg of fluid. Weight prior to dialysis with 97 kg postdialysis was 95 kg. She's had similar symptoms in the past due to low hemoglobin. 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 Patient denies any meredith red blood within her stool. Of note stool is quite dark secondary to iron supplementation. She has no pain with urination. There has been no documented fever. Denies any sore throat, cough, shortness of breath, chest pain, abdominal pain, diarrhea, or any additional complaints. No pain or swelling to the lower extremities. Patient is on Coumadin for A. fib. He has not had a recent INR. She does have a history of GI bleed. Has received blood transfusions in the past with multiple antibiodies. - Related Data Allergies Allergy/AdvReac Type Severity Reaction Status Date / Time ciprofloxacin [From Cipro] Allergy Blisters Verified 12/08/17 13:01 ciprofloxacin HCl Allergy Blisters Verified 12/08/17 13:01 [From Cipro] Home Meds: Home Meds Allopurinol [Zyloprim] 100 mg PO DAILY 10/08/14 [History] Darbepoetin Burke in Polysorbat [Aranesp] 50 mcg IJ ASDIRECTED 10/08/14 [History] Furosemide [Lasix] 40 mg PO BID 10/08/14 [History] Pravastatin [Pravachol] 40 mg PO DAILY 10/08/14 [History] Vit 90/Iron Fum/Folic [ Formula] 1 each PO DAILY 10/08/14 [ History] Verapamil HCl 360 mg PO DAILY 10/08/14 [History] amLODIPine [Norvasc] 5 mg PO DAILY 10/08/14 [History] Sodium Bicarbonate 648 mg PO BID 02/18/15 [History] Calcium Acetate [PhosLo] 2,001 mg PO ASDIRECTED 04/14/16 [History] Ferrous Sulfate 650 mg PO DAILY 04/14/16 [History] Iron Sucrose Complex [Venofer] 100 mg IV WEEKLY 04/14/16 [History] Paricalcitol 6 mcg IJ TUTHSA 04/14/16 [History] Acetaminophen 650 mg PO ASDIRECTED PRN 04/21/16 [History] Aspirin [Halfprin] 81 mg PO ASDIRECTED 04/21/16 [History] Cyanocobalamin (Vitamin B-12) [B-12] 500 mcg PO DAILY 04/21/16 [History] Acetaminophen/oxyCODONE [Percocet 325-5 MG] 1 tab PO Q6H PRN #20 tablet [Rx] Warfarin [Coumadin] 5 mg PO SUTUWETHFRSA 02/28/17 [History] Metoprolol Tartrate 25 mg PO BEDTIME 12/08/17 [History] Metoprolol Tartrate 50 mg PO DAILY 12/08/17 [History] Warfarin [Coumadin] 2.5 mg PO MO 12/08/17 [History] Past Medical History HEENT History: Reports: Impaired Vision Other HEENT History: wears eyeglasses Cardiovascular History: Reports: Afib, CAD, Heart Failure, High Cholesterol, Hypertension Respiratory History: Reports: SOB Other Respiratory History: Pt states the last couple month she's had more trouble breathing and fld. on her lungs. States worked at [employer] and worked with many chemicals. Gastrointestinal History: Reports: None Genitourinary History: Reports: Dialysis, Other (See Below) Other Genitourinary History: Bladder surgery [employer] History: Reports: Musculoskeletal History: Reports: Arthritis Neurological History: Reports: None Other Neuro History: Pt states she has a bad back but has never had surgery. Psychiatric History: Reports: None Other Psychiatric History: states was depressed when finding out of having cancer. Endocrine/Metabolic History: Reports: Diabetes, Type II, Obesity/BMI 30+ Other Endocrine/Metabolic History: Pt states DM II resolved since gastric bypass surgery. Hematologic History: Reports: Anemia, Blood Transfusion(s) Other Hematologic History: Pt thinks anesthesia may have caused sports on her arms. Immunologic History: Reports: None Oncologic (Cancer) History: Reports: Bladder Other Oncologic History: Pt completed chemo/radiation. Dermatologic History: Reports: Other (See Below) Other Dermatologic History: bed sore on cocyx - Infectious Disease History Infectious Disease History: Reports: C-Difficile, Chicken Pox, Measles, Rheumatic Fever, Scarlet Fever - Past Surgical History Head Surgeries/Procedures: Reports: None Cardiovascular Surgical History: Reports: Coronary Artery Stent, Vascular Surgery GI Surgical History: Reports: Bariatric Procedure, Other (See Below) Female Surgical History: Reports: Section, Hysterectomy, Oophorectomy Social & Family History - Family History Family Medical History: Noncontributory Cardiac: Reports: Aneurysm, CT Other Cardiac Family History: Father of CT. Sister of aneurysm. - Tobacco Use Smoking Status *Q: Former Smoker Years of Tobacco use: 20 Packs/Tins Daily: 1.3 Used Tobacco, but Quit: Yes Month Tobacco Last Used: 2000 Second Hand Smoke Exposure: No - Caffeine Use Caffeine Use: Reports: Coffee - Alcohol Use Days Per Week of Alcohol Use: 0 - Recreational Drug Use Recreational Drug Use: No - Living Situation & Occupation Living situation: Reports: , Alone Occupation: Disabled ED ROS GENERAL - Review of Systems Review Of Systems: ROS reveals no pertinent complaints other than HPI. ED EXAM, GENERAL - Physical Exam Exam: See Below Exam Limited By: No Limitations General Appearance: Alert, WD/WN, No Apparent Distress Ears: Hearing Grossly Normal Nose: Normal Inspection Throat/Mouth: Normal Voice, No Airway Compromise Neck: Normal Inspection, Supple Respiratory/Chest: No Respiratory Distress, Lungs Clear, Normal Breath Sounds, No Accessory Muscle Use Cardiovascular: Normal Peripheral Pulses, Tachycardia, Systolic Murmur, Extra Beats, Other (Port-A-Cath right chest) Peripheral Pulses: 3+: Radial (L) GI/Abdominal: Normal Bowel Sounds, Soft, Non-Tender, No Organomegaly, No Distention Back Exam: Normal Inspection Extremities: Normal Inspection, Non-Tender, No Pedal Edema, Normal Capillary Refill, Other (Shunt to the left arm) Neurological: Alert, Oriented, CN II-XII Intact, Normal Cognition, No Motor/ Sensory Deficits Psychiatric: Normal Affect, Normal Mood Skin Exam: Warm, Dry, Intact, Normal Color Course - Vital Signs Last Recorded V/S: Last Vital Signs Temp 98.4 F 12/08/17 12:56 Pulse 102 H 12/08/17 15:44 Resp 15 12/08/17 12:56 BP 117/61 12/08/17 15:44 Pulse Ox 98 12/08/17 12:56 - Orders/Labs/Meds Orders: Active Orders 24 hr Category Date Time Status EKG 12 Lead [EKG Documentation Completion] [RC] STAT Care 12/08/17 13:35 Active Peripheral IV Care [RC] . DIRECTED Care 12/08/17 13:34 Active ANTIBODY IDENTIFICATION [BBK] Stat Lab 12/08/17 13:55 Results CULTURE BLOOD [BC] Stat Lab 12/08/17 13:36 Received CULTURE BLOOD [BC] Stat Lab 12/08/17 13:55 Received TYPE AND SCREEN [BBK] Stat Lab 12/08/17 13:55 Results Blood Culture x2 Reflex Set [OM.PC] Stat Oth 12/08/17 13:33 Ordered Peripheral IV Insertion Adult [OM.PC] Routine Oth 12/08/17 13:34 Ordered Labs: Laboratory Tests 12/08/17 12/08/17 12/08/17 Range/Units 13:43 13:43 13:55 WBC (3.98-10.04) K/mm3 RBC (3.98-5.22) M/mm3 Hgb (11.2-15.7) gm/L Hct (34.1-44.9) % MCV (79.4-94.8) fl MCH (25.6-32.2) pg MCHC (32.2-35.5) g/dl RDW Std Deviation (36.4-46.3) fL Plt Count (182-369) K/mm3 MPV (9.4-12.3) fl Neutrophils % (Manual) (40-60) % Band Neutrophils % (0-10) % Lymphocytes % (Manual) (20-40) % Atypical Lymphs % % Monocytes % (Manual) (2-10) % Eosinophils % (Manual) (0.7-5.8) % Basophils % (Manual) (0.1-1.2) Platelet Estimate Macrocytosis Target Cells Tear Drop Cells [place] Cells RBC Morph Comment PT (8.0-13.0) SECONDS INR APTT (22-36) SECONDS Sodium (136-145) mEq/L Potassium (3.5-5.1) mEq/L Chloride (98-107) mEq/L Carbon Dioxide (21-32) mEq/L Anion Gap (5-15) BUN (7-18) mg/dL Creatinine (0.55-1.02) mg/dL Est Cr Clr Drug Dosing mL/min Estimated GFR (MDRD) (>60) mL/min BUN/Creatinine Ratio (14-18) Glucose (80-115) mg/dL Lactic Acid 0.7 (0.4-2.0) mmol/L Calcium (8.5-10.1) mg/dL Magnesium 1.5 L (1.8-2.4) mg/dl Total Bilirubin (0.2-1.0) mg/dL AST (15-37) U/L ALT (14-59) U/L Alkaline Phosphatase (46-116) U/L Troponin I (0.00-0.056) ng/mL C-Reactive Protein (<1.0) mg/dL Total Protein (6.4-8.2) g/dl Albumin (3.4-5.0) g/dl Globulin gm/dL Albumin/Globulin Ratio (1-2) TSH 3rd Generation 2.253 (0.358-3.74) uIU/mL Blood Type Gel Antibody Screen 12/08/17 12/08/17 12/08/17 Range/Units 13:55 13:55 13:55 WBC 3.23 L (3.98-10.04) K/mm3 RBC 1.68 L (3.98-5.22) M/mm3 Hgb 5.5 L* (11.2-15.7) gm/L Hct 17.9 L (34.1-44.9) % MCV 106.5 H (79.4-94.8) fl MCH 32.7 H (25.6-32.2) pg MCHC 30.7 L (32.2-35.5) g/dl RDW Std Deviation 52.9 H (36.4-46.3) fL Plt Count 214 (182-369) K/mm3 MPV 9.7 (9.4-12.3) fl Neutrophils % (Manual) 87 H (40-60) % Band Neutrophils % 0 (0-10) % Lymphocytes % (Manual) 9 L (20-40) % Atypical Lymphs % 0 % Monocytes % (Manual) 1 L (2-10) % Eosinophils % (Manual) 3 (0.7-5.8) % Basophils % (Manual) 0 L (0.1-1.2) Platelet Estimate Adequate Macrocytosis 2+ moderate Target Cells 1+ slight Tear Drop Cells 1+ slight [place] Cells 1+ slight RBC Morph Comment Not Reportable PT 28.7 H (8.0-13.0) SECONDS INR 2.66 APTT (22-36) SECONDS Sodium 139 (136-145) mEq/L Potassium 3.0 L (3.5-5.1) mEq/L Chloride 98 (98-107) mEq/L Carbon Dioxide 30 (21-32) mEq/L Anion Gap 14.0 (5-15) BUN 33 H (7-18) mg/dL Creatinine 2.8 H (0.55-1.02) mg/dL Est Cr Clr Drug Dosing 18.75 mL/min Estimated GFR (MDRD) 17 (>60) mL/min BUN/Creatinine Ratio 11.8 L (14-18) Glucose 96 (80-115) mg/dL Lactic Acid (0.4-2.0) mmol/L Calcium 8.3 L (8.5-10.1) mg/dL Magnesium (1.8-2.4) mg/dl Total Bilirubin 0.3 (0.2-1.0) mg/dL AST 19 (15-37) U/L ALT 24 (14-59) U/L Alkaline Phosphatase 79 (46-116) U/L Troponin I 0.089 H* (0.00-0.056) ng/mL C-Reactive Protein < 0.2 (<1.0) mg/dL Total Protein 6.1 L (6.4-8.2) g/dl Albumin 3.1 L (3.4-5.0) g/dl Globulin 3.0 gm/dL Albumin/Globulin Ratio 1.0 (1-2) TSH 3rd Generation (0.358-3.74) uIU/mL Blood Type Gel Antibody Screen 12/08/17 12/08/17 Range/Units 13:55 13:55 WBC (3.98-10.04) K/mm3 RBC (3.98-5.22) M/mm3 Hgb (11.2-15.7) gm/L Hct (34.1-44.9) % MCV (79.4-94.8) fl MCH (25.6-32.2) pg MCHC (32.2-35.5) g/dl RDW Std Deviation (36.4-46.3) fL Plt Count (182-369) K/mm3 MPV (9.4-12.3) fl Neutrophils % (Manual) (40-60) % Band Neutrophils % (0-10) % Lymphocytes % (Manual) (20-40) % Atypical Lymphs % % Monocytes % (Manual) (2-10) % Eosinophils % (Manual) (0.7-5.8) % Basophils % (Manual) (0.1-1.2) Platelet Estimate Macrocytosis Target Cells Tear Drop Cells [place] Cells RBC Morph Comment PT (8.0-13.0) SECONDS INR APTT 36 (22-36) SECONDS Sodium (136-145) mEq/L Potassium (3.5-5.1) mEq/L Chloride (98-107) mEq/L Carbon Dioxide (21-32) mEq/L Anion Gap (5-15) BUN (7-18) mg/dL Creatinine (0.55-1.02) mg/dL Est Cr Clr Drug Dosing mL/min Estimated GFR (MDRD) (>60) mL/min BUN/Creatinine Ratio (14-18) Glucose (80-115) mg/dL Lactic Acid (0.4-2.0) mmol/L Calcium (8.5-10.1) mg/dL Magnesium (1.8-2.4) mg/dl Total Bilirubin (0.2-1.0) mg/dL AST (15-37) U/L ALT (14-59) U/L Alkaline Phosphatase (46-116) U/L Troponin I (0.00-0.056) ng/mL C-Reactive Protein (<1.0) mg/dL Total Protein (6.4-8.2) g/dl Albumin (3.4-5.0) g/dl Globulin gm/dL Albumin/Globulin Ratio (1-2) TSH 3rd Generation (0.358-3.74) uIU/mL Blood Type AB POSITIVE Gel Antibody Screen Positive Meds: Medications Discontinued Medications Generic Name Dose Route Start Last Admin Trade Name Freq PRN Reason Stop Dose Admin Pantoprazole Sodium 80 mg/ 100 mls @ 10 mls/hr 12/08/17 14:45 12/08/17 15:03 Sodium Chloride IV 8 mg/hr Q10H DEV 10 mls/hr 8 MG/HR Administration Phytonadione 5 mg/ Sodium 50.5 mls @ 100 mls/hr 12/08/17 15:09 12/08/17 15:55 Chloride IV 12/08/17 15:39 100 mls/hr NOW ONE Administration Sodium Chloride 1,000 mls @ 75 mls/hr 12/08/17 15:15 Normal Saline IV ASDIRECTED DEV Magnesium Oxide 400 mg 12/08/17 14:49 12/08/17 15:13 Magnesium Oxide PO 12/08/17 14:50 400 mg ONETIME ONE Administration Metoprolol Tartrate 5 mg 12/08/17 15:23 12/08/17 15:44 Lopressor IVPUSH 12/08/17 15:24 5 mg ONETIME ONE Administration Potassium Chloride 40 meq 12/08/17 14:48 12/08/17 15:07 Klor-Con M20 PO 12/08/17 14:49 40 meq ONETIME ONE Administration Sodium Chloride 10 ml 12/08/17 13:34 12/08/17 13:37 Saline Flush FLUSH 10 ml ASDIRECTED PRN Administration Keep Vein Open - Re-Assessments/Exams Free Text/Narrative Re-Assessment/Exam: Patient's port will be accessed for for IV medications, fluids, and blood work. Blood cultures 2 ordered. Influenza screen ordered. Lactic acid, magnesium, troponin, TSH, UA, EKG, CBC, chem 14, and CRP ordered. Patient had a episode of V. tach in total 9 beats. Patient's underlying rhythm is sinus tachycardia at rate 108. I instructed nursing staff to place crash cart close by. EKG: Sinus tachycardia with bigeminal PVCs. Heart rate 119. No acute ST changes noted. 1418 Hemoglobin per lab 5.5. Chest x-ray: Cardiomegaly, Port-A-Cath in place. No acute findings noted. Reviewed with Dr. Zepeda. Stool Hemoccult was positive for blood. Patient requests transfer to [place]. I did order type and screen. Patient states she has multiple antibodies and has to be transferred to [place]. I ordered Protonix 8 mg an hour. Labs reviewed: White blood cell count 3.23, hemoglobin 5.5, MCV 106.5, platelet count 214, manual differential is pending. Sodium 139, potassium 3.0, creatinine 2.8 lactic acid 0.7, magnesium pending, troponin 0.089. CRP pending. Troponin most likely elevated secondary to renal failure. Will trend. 12/08/17 1359 Run of Vtach 11 beats. PT/INR and PTT ordered pending. INR 2.66, TSH is 2.253, and Mg 1.5. 12/08/17 14:50 Ordered potassium 40 mg by mouth and also magnesium oxide 400 mg by mouth. Will arrange transport. 12/08/17 1452 Reassessment, BP 103/67, HR 112. Spoke with Dr. Phillips sort operations supervisor Hospitalists at [facility]. Requests Vitamin K 5mg IVP. She has accepted the patient. Ambulance transport arranged. Will start IVF's NS for transport. 12/08/17 15:30 patient had a short run of SVT. Blood pressure 117/75. Map of 88. Ordered Lopressor [address] Zepeda agrees. 1533 EMS has arrived for transfer. All documentation completed. Departure - Departure Time of Disposition: 13:55 Disposition: DC/Tfer to [facility] 02 Reason for Transfer *Q: Other Condition: Fair Clinical Impression: Dialysis patient, Hypokalemia, Low magnesium level GI bleed Qualifiers: GI bleed type/associated pathology: unspecified gastrointestinal hemorrhage type Qualified Code(s): K92.2 - Gastrointestinal hemorrhage, unspecified Cardiac dysrhythmia Qualifiers: Arrhythmia type: ventricular tachycardia Qualified Code(s): I47.2 - Ventricular tachycardia Referrals: Denny Balderas MD [Primary Care Provider] - Forms: ED Department Discharge - My Orders Last 24 Hours: My Active Orders 12/08/17 13:33 Blood Culture x2 Reflex Set [OM.PC] Stat 12/08/17 13:34 Peripheral IV Care [RC] . DIRECTED Peripheral IV Insertion Adult [OM.PC] Routine 12/08/17 13:35 EKG 12 Lead [EKG Documentation Completion] [RC] STAT 12/08/17 13:36 CULTURE BLOOD [BC] Stat 12/08/17 13:55 ANTIBODY IDENTIFICATION [BBK] Stat CULTURE BLOOD [BC] Stat TYPE AND SCREEN [BBK] Stat - Assessment/Plan Last 24 Hours: My Active Orders 12/08/17 13:33 Blood Culture x2 Reflex Set [OM.PC] Stat 12/08/17 13:34 Peripheral IV Care [RC] . DIRECTED Peripheral IV Insertion Adult [OM.PC] Routine 12/08/17 13:35 EKG 12 Lead [EKG Documentation Completion] [RC] STAT 12/08/17 13:36 CULTURE BLOOD [BC] Stat 12/08/17 13:55 ANTIBODY IDENTIFICATION [BBK] Stat CULTURE BLOOD [BC] Stat TYPE AND SCREEN [BBK] Stat
[2017-12-08] MEDS ORDERED: Pantoprazole 80 MG in Sodium Chloride 0.9% 100 ML IV SCH (14:45)
[2017-12-08] MEDS ORDERED: Potassium Chloride 20 MEQ Tab.ER PO ONE (14:48)
[2017-12-08] MEDS ORDERED: Magnesium Oxide 400 MG Tab PO ONE (14:49)
[2017-12-08] MEDS ORDERED: Phytonadione 5 MG in Sodium Chloride 0.9% 50 ML IV ONE (15:09)
--- NOTE | 2017-12-08 15:12 | CR ---
Chest: Portable view of the chest was obtained. Comparison: Prior chest x-ray of 08/14/16. Heart size at the upper limits of normal. Tortuous thoracic aorta is seen. Right-sided infusion port is seen. Lungs are clear with no acute parenchymal densities. Bony structures are grossly intact. Impression: 1. Incidental findings. Nothing acute is identified. Diagnostic code #2
[2017-12-08] MEDS ORDERED: Sodium Chloride 0.9% 1,000 ML IV SCH (15:15)
[2017-12-08] MEDS ORDERED: Metoprolol Tartrate 5 MG/5 ML SDV IVPUSH ONE (15:23)
[2017-12-08 15:49] VITALS: BP 117/61
== END 2017-12-08 16:03 ==
LOC: JD.ED 12:44
DX: K92.2 Gastrointestinal hemorrhage, unspecified (principal); I47.2 Ventricular tachycardia; E87.6 Hypokalemia; E83.42 Hypomagnesemia; I11.0 Hypertensive heart disease with heart failure; I25.10 Atherosclerotic heart disease of native coronary artery without angina pectoris; I50.9 Heart failure, unspecified; I48.91 Unspecified atrial fibrillation; E78.00 Pure hypercholesterolemia, unspecified; E11.9 Type 2 diabetes mellitus without complications; Z87.891 Personal history of nicotine dependence; Z88.1 Allergy status to other antibiotic agents; Z79.01 Long term (current) use of anticoagulants; Z99.2 Dependence on renal dialysis; D63.1 Anemia in chronic kidney disease
CPT/HCPCS: 36415; 71045; 80053; 83605; 83735; 84443; 84484; 85018; 85025; 85610; 85730; 86140; 86850; 86870; 86900; 86901; 87040; 93005; 96365; 96375; 99285; A9270; C9113; J3430; J7030; J7050; J3490

== ENCOUNTER 2018-02-02 15:44 | Emergency (ER) | payer MEDICARE, MEDICAID ==
[2018-02-02 16:03] VITALS: BP 132/78
[2018-02-02] MEDS ORDERED: Sodium Chloride 0.9% 1,000 ML IV SCH (16:15)
[2018-02-02] MEDS ORDERED: Pantoprazole 80 MG in Sodium Chloride 0.9% 100 ML IV ONE (16:19)
--- NOTE | 2018-02-02 16:28 | EDM.PDOC ---
ED HPI GENERAL MEDICAL PROBLEM - General Chief Complaint: Gastrointestinal Problem Stated Complaint: LOW HEMOGLOBIN/SOB Time Seen by Provider: 02/02/18 16:00 Source of Information: Reports: Patient History Limitations: Reports: No Limitations - History of Present Illness INITIAL COMMENTS - FREE TEXT/NARRATIVE: Patient is a 68-year-old female with a history of bladder cancer and renal failure currently on dialysis who presents to the ED complaining of dizziness and low hemoglobin. Patient this morning had dialysis with blood work obtained afterwards indicating patient's hemoglobin is 6.3. Patient does have dark black stools but is on iron supplements. States she was seen by her oncologist this last week with a hemoglobin of 10. She has a history of bladder cancer and had presumably a CT of the abdomen and pelvis or possibly was a PET scan. Patient has not noticed a change in her stool pattern at this point. There is no meredith blood present. She has noted no abdominal pain. States on Thursday started feeling dizzy with standing. Today is quite severe with a sensation that she is going to pass out. Thus prompting evaluation in the ED. Patient stopped taking her Coumadin 2 days ago with onset of symptoms. She is on Coumadin for A. fib. She does complain of some shortness of breath with exertion. Denies any increased edema to her lower extremities, PND, and orthopnea. There is no chest pain. No fever. No shortness of breath at rest. No dysuria. She has a history of GI bleeds in the past. She received multiple blood transfusions with multiple antibodies present. Patient was evaluated December 08, 2017 with low hemoglobin requiring transport to [facility]. Patients dry weight is normally 92 kg. Weight before dialysis today was 96 kg. They took off approximately 4 L of fluid. - Related Data Allergies Allergy/AdvReac Type Severity Reaction Status Date / Time ciprofloxacin [From Cipro] Allergy Blisters Verified 02/02/18 15:51 ciprofloxacin HCl Allergy Blisters Verified 02/02/18 15:51 [From Cipro] Home Meds: Home Meds Allopurinol [Zyloprim] 100 mg PO DAILY 10/08/14 [History] Darbepoetin Burke in Polysorbat [Aranesp] 50 mcg IJ ASDIRECTED 10/08/14 [History] Furosemide [Lasix] 40 mg PO BID 10/08/14 [History] Pravastatin [Pravachol] 40 mg PO DAILY 10/08/14 [History] Vit 90/Iron Fum/Folic [ Formula] 1 each PO DAILY 10/08/14 [ History] Verapamil HCl 360 mg PO DAILY 10/08/14 [History] amLODIPine [Norvasc] 5 mg PO DAILY 10/08/14 [History] Sodium Bicarbonate 648 mg PO BID 02/18/15 [History] Calcium Acetate [PhosLo] 2,001 mg PO ASDIRECTED 04/14/16 [History] Ferrous Sulfate 650 mg PO DAILY 04/14/16 [History] Iron Sucrose Complex [Venofer] 100 mg IV WEEKLY 04/14/16 [History] Paricalcitol 6 mcg IJ TUTHSA 04/14/16 [History] Acetaminophen 650 mg PO ASDIRECTED PRN 04/21/16 [History] Aspirin [Halfprin] 81 mg PO ASDIRECTED 04/21/16 [History] Cyanocobalamin (Vitamin B-12) [B-12] 500 mcg PO DAILY 04/21/16 [History] Warfarin [Coumadin] 5 mg PO SUTUWETHFRSA 02/28/17 [History] Metoprolol Tartrate 25 mg PO BEDTIME 12/08/17 [History] Metoprolol Tartrate 50 mg PO DAILY 12/08/17 [History] Warfarin [Coumadin] 2.5 mg PO MO 12/08/17 [History] Sevelamer Carbonate [Renvela] 1 tab PO ASDIRECTED 02/02/18 [History] Past Medical History HEENT History: Reports: Impaired Vision Other HEENT History: wears eyeglasses Cardiovascular History: Reports: Afib, CAD, Heart Failure, High Cholesterol, Hypertension Respiratory History: Reports: SOB Other Respiratory History: Pt states the last couple month she's had more trouble breathing and fld. on her lungs. States worked at [employer] and worked with many chemicals. 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 Psychiatric History: Reports: None Other Psychiatric History: states was depressed when finding out of having cancer. Endocrine/Metabolic History: Reports: Diabetes, Type II, Obesity/BMI 30+ Other Endocrine/Metabolic History: Pt states DM II resolved since gastric bypass surgery. Hematologic History: Reports: Anemia, Blood Transfusion(s) Other Hematologic History: Pt thinks anesthesia may have caused sports on her arms. Immunologic History: Reports: None Oncologic (Cancer) History: Reports: Bladder Other Oncologic History: Pt completed chemo/radiation. Dermatologic History: Reports: Other (See Below) Other Dermatologic History: bed sore on cocyx - Infectious Disease History Infectious Disease History: Reports: C-Difficile, Chicken Pox, Measles, Rheumatic Fever, Scarlet Fever - Past Surgical History Head Surgeries/Procedures: Reports: None Cardiovascular Surgical History: Reports: Coronary Artery Stent, Vascular Surgery GI Surgical History: Reports: Bariatric Procedure, Other (See Below) Female Surgical History: Reports: Section, Hysterectomy, Oophorectomy Social & Family History - Family History Family Medical History: Noncontributory Cardiac: Reports: Aneurysm, [place] Other Cardiac Family History: Father of [place]. Sister of aneurysm. - Tobacco Use Smoking Status *Q: Never Smoker Years of Tobacco use: 20 Packs/Tins Daily: 1.3 Used Tobacco, but Quit: Yes Month/Year Tobacco Last Used: 2000 Second Hand Smoke Exposure: No - Caffeine Use Caffeine Use: Reports: Coffee - Alcohol Use Days Per Week of Alcohol Use: 0 - Recreational Drug Use Recreational Drug Use: No - Living Situation & Occupation Living situation: Reports: , Alone Occupation: Disabled ED ROS GENERAL - Review of Systems Review Of Systems: See Below Constitutional: Denies: Fever, Chills, Decreased Appetite HEENT: Reports: No Symptoms Respiratory: Reports: Cough (Chronic). Denies: Shortness of Breath (At rest), Pleuritic Chest Pain, Hemoptysis Cardiovascular: Reports: Dyspnea on Exertion (Since dialysis this morning). Denies: Chest Pain, Edema, Orthopnea, Palpitations, PND, Syncope GI/Abdominal: Reports: Black Stool (On iron). Denies: Abdominal Pain, Bloody Stool, Constipation, Diarrhea, Decreased Appetite, Hematemesis, Hematochezia, Nausea, Vomiting : Reports: No Symptoms Musculoskeletal: Reports: No Symptoms Neurological: Reports: Dizziness (With standing) ED EXAM, GI/ABD - Physical Exam Exam: See Below Exam Limited By: No Limitations General Appearance: Alert, WD/WN, No Apparent Distress Ears: Hearing Grossly Normal Nose: Normal Inspection Throat/Mouth: Normal Inspection, Normal Oropharynx, Normal Voice, No Airway Compromise Neck: Normal Inspection, Supple Respiratory/Chest: No Respiratory Distress, Lungs Clear, Normal Breath Sounds, Chest Non-Tender Cardiovascular: Normal Peripheral Pulses, Systolic Murmur, Irregularly Irregular GI/Abdominal Exam: Normal Bowel Sounds, Soft, Non-Tender, No Organomegaly, No Distention Extremities: Normal Inspection, Non-Tender, No Pedal Edema Neurological: Alert, Oriented, CN II-XII Intact, Normal Cognition, No Motor/ Sensory Deficits Psychiatric: Normal Affect, Normal Mood Skin Exam: Warm, Dry, Intact, Normal Color Course - Vital Signs Last Recorded V/S: Last Vital Signs Temp 98.1 F 02/02/18 15:59 Pulse 60 02/02/18 15:59 Resp 16 02/02/18 15:59 BP 132/78 02/02/18 15:59 Pulse Ox 98 02/02/18 15:59 - Orders/Labs/Meds Orders: Active Orders 24 hr Category Date Time Status EKG 12 Lead [EKG Documentation Completion] [RC] STAT Care 02/02/18 17:34 Active ANTIBODY IDENTIFICATION [BBK] Stat Lab 02/02/18 16:28 Results TYPE AND SCREEN [BBK] Stat Lab 02/02/18 16:28 Results Labs: Laboratory Tests 02/02/18 02/02/18 02/02/18 Range/Units 16:28 16:28 16:28 WBC 3.75 L (3.98-10.04) K/mm3 RBC 2.23 L (3.98-5.22) M/mm3 Hgb 7.1 L* (11.2-15.7) gm/L Hct 22.8 L (34.1-44.9) % MCV 102.2 H (79.4-94.8) fl MCH 31.8 (25.6-32.2) pg MCHC 31.1 L (32.2-35.5) g/dl RDW Std Deviation 50.3 H (36.4-46.3) fL Plt Count 234 (182-369) K/mm3 MPV 9.5 (9.4-12.3) fl Neutrophils % (Manual) 88 H (40-60) % Band Neutrophils % 0 (0-10) % Lymphocytes % (Manual) 3 L (20-40) % Atypical Lymphs % 0 % Monocytes % (Manual) 5 (2-10) % Eosinophils % (Manual) 4 (0.7-5.8) % Basophils % (Manual) 0 L (0.1-1.2) Platelet Estimate Adequate Plt Morphology Comment Normal Anisocytosis 1+ slight Microcytosis 2+ moderate PT (9.5-12.1) SECONDS INR APTT (24-31) SECONDS Sodium 136 (136-145) mEq/L Potassium 3.1 L (3.5-5.1) mEq/L Chloride 97 L (98-107) mEq/L Carbon Dioxide 27 (21-32) mEq/L Anion Gap 15.1 H (5-15) BUN 32 H (7-18) mg/dL Creatinine 3.2 H (0.55-1.02) mg/dL Est Cr Clr Drug Dosing 25.12 mL/min Estimated GFR (MDRD) 14 (>60) mL/min BUN/Creatinine Ratio 10.0 L (14-18) Glucose 126 H (80-115) mg/dL Calcium 9.5 (8.5-10.1) mg/dL Total Bilirubin 0.4 (0.2-1.0) mg/dL AST 21 (15-37) U/L ALT 23 (14-59) U/L Alkaline Phosphatase 83 (46-116) U/L Troponin I 0.083 H* (0.00-0.056) ng/mL NT-Pro-B Natriuret Pep (0-125) pg/mL Total Protein 7.2 (6.4-8.2) g/dl Albumin 3.8 (3.4-5.0) g/dl Globulin 3.4 gm/dL Albumin/Globulin Ratio 1.1 (1-2) Blood Type AB POSITIVE Gel Antibody Screen Positive 02/02/18 02/02/18 Range/Units 16:28 17:45 WBC (3.98-10.04) K/mm3 RBC (3.98-5.22) M/mm3 Hgb (11.2-15.7) gm/L Hct (34.1-44.9) % MCV (79.4-94.8) fl MCH (25.6-32.2) pg MCHC (32.2-35.5) g/dl RDW Std Deviation (36.4-46.3) fL Plt Count (182-369) K/mm3 MPV (9.4-12.3) fl Neutrophils % (Manual) (40-60) % Band Neutrophils % (0-10) % Lymphocytes % (Manual) (20-40) % Atypical Lymphs % % Monocytes % (Manual) (2-10) % Eosinophils % (Manual) (0.7-5.8) % Basophils % (Manual) (0.1-1.2) Platelet Estimate Plt Morphology Comment Anisocytosis Microcytosis PT 19.7 H (9.5-12.1) SECONDS INR 1.83 APTT 37 H (24-31) SECONDS Sodium (136-145) mEq/L Potassium (3.5-5.1) mEq/L Chloride (98-107) mEq/L Carbon Dioxide (21-32) mEq/L Anion Gap (5-15) BUN (7-18) mg/dL Creatinine (0.55-1.02) mg/dL Est Cr Clr Drug Dosing mL/min Estimated GFR (MDRD) (>60) mL/min BUN/Creatinine Ratio (14-18) Glucose (80-115) mg/dL Calcium (8.5-10.1) mg/dL Total Bilirubin (0.2-1.0) mg/dL AST (15-37) U/L ALT (14-59) U/L Alkaline Phosphatase (46-116) U/L Troponin I (0.00-0.056) ng/mL NT-Pro-B Natriuret Pep 9642 H (0-125) pg/mL Total Protein (6.4-8.2) g/dl Albumin (3.4-5.0) g/dl Globulin gm/dL Albumin/Globulin Ratio (1-2) Blood Type Gel Antibody Screen Meds: Medications Discontinued Medications Generic Name Dose Route Start Last Admin Trade Name Freq PRN Reason Stop Dose Admin Sodium Chloride 1,000 mls @ 250 mls/hr 02/02/18 16:15 02/02/18 16:44 Normal Saline IV 250 mls/hr ASDIRECTED DEV Administration Pantoprazole Sodium 80 mg/ 100 mls @ 10 mls/hr 02/02/18 16:19 02/02/18 16:44 Sodium Chloride IV 02/03/18 02:18 10 mls/hr ONETIME ONE Administration Potassium Chloride 40 meq 02/02/18 18:47 02/02/18 18:52 Klor-Con M20 PO 02/02/18 18:48 40 meq ONETIME ONE Administration - Re-Assessments/Exams Free Text/Narrative Re-Assessment/Exam: Hgb obtained at dialysis was 6.3. PCP sent patient to the E.D. for further evaluation and tx. IV established with normal saline 250 mL per hour. Stool Hemoccult was grossly positive for blood. Ordered Protonix 8 mg per hour. Initial labs and studies include CMP, CBC, proBNP, troponin, type and screen, and coag studies. Orthostatic vitals not required. Patient with standing is quite dizzy with the sensation she is going to fall over. 1722 HGB is 7.1. 1733 Troponin 0.083. Troponin obtained December 08, 2017 was 0.089. Suspect this is related to demand ischemia. She has no chest pain or SOB at rest. BMP is 9642. CBC: White blood cell count 3.75, hemoglobin 7.1, and platelet count 234. Chem 14: Potassium 3.1, Hgb 15.1, creatinine 3.2, and glucose 126. COAGS are pending. EKG pending as well. INR 1.83. EKG sinus rhythm at a rate of 91 with occasional PVCs multifocal. No acute ST changes noted. Patient will require transport to [place] due to increased blood antibodies and also inpatient dialysis. 02/02/18 18:[address] Burns rehabilitation program coordinator Hospital[facility] at [facility]. She has accepted the patient. Ambulance crew notified and all transfer paperwork completed. Does not request vitamin K and/or FFP. Departure - Departure Time of Disposition: 18:46 Disposition: DC/Tfer to Acute Hospital 02 Condition: Good Clinical Impression: Elevated troponin, Hypokalemia Anemia Qualifiers: Anemia type: other cause Other causes of anemia: other cause, not classified Qualified Code(s): D64.89 - Other specified anemias GI bleed Qualifiers: GI bleed type/associated pathology: unspecified gastrointestinal hemorrhage type Qualified Code(s): K92.2 - Gastrointestinal hemorrhage, unspecified - Discharge Information Referrals: Denny Balderas MD [Primary Care Provider] - Forms: ED Department Discharge - My Orders Last 24 Hours: My Active Orders 02/02/18 16:28 ANTIBODY IDENTIFICATION [BBK] Stat TYPE AND SCREEN [BBK] Stat 02/02/18 17:34 EKG 12 Lead [EKG Documentation Completion] [RC] STAT - Assessment/Plan Last 24 Hours: My Active Orders 02/02/18 16:28 ANTIBODY IDENTIFICATION [BBK] Stat TYPE AND SCREEN [BBK] Stat 02/02/18 17:34 EKG 12 Lead [EKG Documentation Completion] [RC] STAT
[2018-02-02] MEDS ORDERED: Potassium Chloride 20 MEQ Tab.ER PO ONE (18:47)
== END 2018-02-02 19:48 ==
LOC: JD.ED 15:44
DX: D64.89 Other specified anemias (principal); E87.6 Hypokalemia; K92.2 Gastrointestinal hemorrhage, unspecified; R79.89 Other specified abnormal findings of blood chemistry; E78.00 Pure hypercholesterolemia, unspecified; I10 Essential (primary) hypertension; E11.9 Type 2 diabetes mellitus without complications; Z88.1 Allergy status to other antibiotic agents; Z79.82 Long term (current) use of aspirin; Z79.899 Other long term (current) drug therapy; Z87.891 Personal history of nicotine dependence
CPT/HCPCS: 36415; 80053; 83880; 84484; 85025; 85610; 85730; 93005; 96365; 96366; 99285; A9270; C9113; J7030; J7040

== ENCOUNTER 2018-10-05 03:44 | Emergency (ER) | payer MEDICARE, MEDICAID ==
[2018-10-05] MEDS ORDERED: HYDROmorphone 0.5 MG/0.5 ML Syringe IVPUSH PRN (05:00)
[2018-10-05] MEDS ORDERED: HYDROmorphone 1 MG/ML Syringe ONE (05:04)
[2018-10-05] MEDS ORDERED: HYDROmorphone 1 MG/ML Syringe IVPUSH ONE (05:04)
[2018-10-05] MEDS ORDERED: cefTRIAXone 1 GM Vial IM ONE (05:42)
[2018-10-05] MEDS ORDERED: cefTRIAXone 1 GM in Sodium Chloride 0.9% 100 ML IV ONE (05:57)
--- NOTE | 2018-10-05 07:17 | ER ---
REASON FOR EMERGENCY ROOM VISIT: Fever and myalgias. HISTORY OF PRESENT ILLNESS: This delightful 68-year-old woman is a chronic dialysis patient. She has had end-stage renal disease for approximately 4 years. She comes in with a 3-day history of severe myalgias affecting her arms, legs, chest, and abdomen, along with fever and chills. She has not had any respiratory symptoms such as coughing or wheezing. She has had some shortness of breath basically over the last 12 to 24 hours, but she is due to be dialyzed this morning and she thinks that may play a part of it. She has not had any sore throat or earache. She denies any headache. Normally, her stools are somewhat loose and this has not changed. She has not had any nausea or vomiting. Her predominant complaints are body aches and fever. She does live alone. It should be noted that she underwent cholecystectomy for emphysematous cholecystitis 2 months ago in [place] and did very well from that standpoint. She normally dialyzes every Thursday, , and Thursday, and so this is her long stretch in terms of her dialysis schedule. She does have a history of bladder cancer, which required radiation and chemotherapy, and she has been monitored with periodic cystoscopies since that was diagnosed and treated 4 years ago as well. So far, she states she is doing well from that standpoint. It should be noted that the patient is almost anuric, although she does void approximately every other day. PAST MEDICAL HISTORY: Significant for the followin. Chronic renal failure, on dialysis x4 years. 2. Anemia. 3. History of bladder cancer as noted above. 4. History of UTIs. 5. Degenerative joint disease. 6. Acute cholecystitis as mentioned above. 7. Paroxysmal atrial fibrillation. 8. History of rheumatic fever. 9. Coronary artery disease with stenting. 10.Gastric bypass. 11.Hysterectomy. CURRENT MEDICATIONS: Her list is quite extensive and this was reviewed from electronic medical records. It includes the following: Allopurinol, darbepoetin, furosemide, pravastatin, vitamins, verapamil, amlodipine, sodium bicarb, calcium acetate, ferrous sulfate, iron sucrose complex, paricalcitol, acetaminophen p.r.n., aspirin, vitamin B12, Coumadin, metoprolol, and sevelamer carbonate. ALLERGIES: To ciprofloxacin. REVIEW OF SYSTEMS: Pertinent positives and negatives as listed in the HPI. PHYSICAL EXAMINATION: GENERAL: She is a pleasant, alert woman, in no acute distress. VITAL SIGNS: Her temperature is 38.4 degrees, heart rate is 107, blood pressure 133/77, respiratory rate 20, and O2 saturations ranged between 93% and 90% on room air. HEENT: Head is normocephalic. TMs are normal. No conjunctivitis is noted. Oropharynx is normal. NECK: Supple. No adenopathy. No JVD is noted. CHEST: Clear to auscultation with no wheezes, rhonchi, or rales, and good air exchange bilaterally. CARDIAC: Regular rate with a grade 2-3/6 systolic murmur, heard over the entire precordium. No rubs are heard. ABDOMEN: Soft, obese, nontender. Bowel sounds are present. There is no rebound, guarding, or percussion tenderness. No masses and no organomegaly. EXTREMITIES: She has some ankle edema bilaterally. Feet are pink and warm. NEUROLOGIC: She is alert and awake and follows commands. She moves all 4 extremities equally well. Deep tendon reflexes were not tested. RECTAL: Examination was not performed. LABORATORY DATA: A CBC shows her white count to be slightly elevated at 10,100, her hemoglobin is 10.7. CMP was obtained. She has a number of minor metabolic abnormalities, but her potassium is 5.9 with a creatinine of 9.4. Urinalysis shows 2+ leukocyte esterase with 20 to 30 wbc's and 10 to 20 rbc's per high-power field, moderate bacteria are present. Chest x-ray shows perhaps some pulmonary vascular congestion, but no definite infiltrates and no overt pulmonary edema. FURTHER EMERGENCY ROOM COURSE: Once all the above labs and x-ray were back, I ordered blood cultures to be obtained followed by Rocephin 1 g IV. She is scheduled to be dialyzed at 6:00 this morning; therefore, by the time she has done and returns here, she will be seen by Dr. Wiley who will be on duty in the emergency room later on today. She understands that I will, therefore, ask him to see her for me, and he will be informed as to her present illness, etc. When she gets back, I have ordered her to get 1 g of Rocephin IV. The real question remains whether or not she should remain in the hospital for another day or two to get her urosepsis under control. She does live alone and I do not think she will get by very well at home under these circumstances, and I do not think she should be discharged until urosepsis vis-a-vis positive blood cultures has been excluded. She understands all the above and all questions were answered. MIMA /[id number]
--- NOTE | 2018-10-05 09:24 | CR ---
Chest: Two views of the chest are obtained. Comparison: Prior chest x-ray of 12/08/17. Heart size appears within normal limits. Tortuous thoracic aorta is seen. Right-sided infusion catheter is noted. Nodular densities are noted within the right upper lung which appear stable and most likely due to calcifications. Slight parenchymal density noted along the left lateral chest also felt to be stable and due to pleural thickening and probable calcification. No acute parenchymal change is seen. Scoliosis noted within the spine. Impression: 1. Multiple findings. Nothing acute is seen. Diagnostic code #2 I agree with preliminary report from [facility], finalized on 10/05/18, 7:17 AM Central Time
--- NOTE | 2018-10-05 09:28 | EDM.PDOC ---
ED HPI GENERAL MEDICAL PROBLEM - General Chief Complaint: General Stated Complaint: [facility] Time Seen by Provider: 10/05/18 04:00 - History of Present Illness INITIAL COMMENTS - FREE TEXT/NARRATIVE: Initial history and physical examination dictated by Dr. Davis. She presented to the ED feeling like she had the flu. She's had diffuse myalgia for the last couple of days and some chills the last few nights. Appetite has been poor. Mildly nauseated but no vomiting. She is due for hemodialysis today. Still makes a little bit of urine like a teaspoon a day. It has been infected in the past. She feels mildly short of breath but no worse than normal. Onset: Gradual Onset Date: 10/03/18 Duration: Day(s):, Getting Worse Location: Reports: Generalized Quality: Reports: Ache (-like symptoms with low-grade fever and intermittent low -grade chills.) Severity: Moderate (Diffuse myalgia) Improves with: Reports: None Worsens with: Reports: None Context: Reports: Other Associated Symptoms: Reports: Cough, Fever/Chills, Loss of Appetite, Malaise, Shortness of Breath. 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 Abdomen Pain Score (Numeric/FACES): 3 - Related Data Allergies Allergy/AdvReac Type Severity Reaction Status Date / Time ciprofloxacin [From Cipro] Allergy Blisters Verified 08/06/18 02:37 ciprofloxacin HCl Allergy Blisters Verified 08/06/18 02:37 [From Cipro] Home Meds: Home Meds Allopurinol [Zyloprim] 100 mg PO DAILY 10/08/14 [History] Darbepoetin Burke in Polysorbat [Aranesp] 50 mcg IJ ASDIRECTED 10/08/14 [History] Furosemide [Lasix] 40 mg PO BID 10/08/14 [History] Pravastatin [Pravachol] 40 mg PO DAILY 10/08/14 [History] Vit 90/Iron Fum/Folic [ Formula] 1 each PO DAILY 10/08/14 [ History] Verapamil HCl 360 mg PO DAILY 10/08/14 [History] amLODIPine [Norvasc] 5 mg PO DAILY 10/08/14 [History] Sodium Bicarbonate 648 mg PO BID 02/18/15 [History] Calcium Acetate [PhosLo] 2,001 mg PO ASDIRECTED 04/14/16 [History] Ferrous Sulfate 650 mg PO DAILY 04/14/16 [History] Iron Sucrose Complex [Venofer] 100 mg IV WEEKLY 04/14/16 [History] Paricalcitol 6 mcg IJ TUTHSA 04/14/16 [History] Acetaminophen 650 mg PO ASDIRECTED PRN 04/21/16 [History] Aspirin [Halfprin] 81 mg PO ASDIRECTED 04/21/16 [History] Cyanocobalamin (Vitamin B-12) [B-12] 500 mcg PO DAILY 04/21/16 [History] Warfarin [Coumadin] 5 mg PO SUTUWETHFRSA 02/28/17 [History] Metoprolol Tartrate 25 mg PO BEDTIME 12/08/17 [History] Metoprolol Tartrate 50 mg PO DAILY 12/08/17 [History] Warfarin [Coumadin] 2.5 mg PO MO 12/08/17 [History] Sevelamer Carbonate [Renvela] 1 tab PO ASDIRECTED 02/02/18 [History] Nitrofurantoin Monohyd/M-Cryst [Macrobid 100 mg Capsule] 100 mg PO BID #16 capsule 10/05/18 [Rx] Past Medical History HEENT History: Reports: Impaired Vision Other HEENT History: wears eyeglasses Cardiovascular History: Reports: Afib, CAD, Heart Failure, High Cholesterol, Hypertension Respiratory History: Reports: SOB Other Respiratory History: Pt states the last couple month she's had more trouble breathing and fld. on her lungs. States worked at [employer] and worked with many chemicals. 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 Psychiatric History: Reports: None Other Psychiatric History: states was depressed when finding out of having cancer. Endocrine/Metabolic History: Reports: Diabetes, Type II, Obesity/BMI 30+ Other Endocrine/Metabolic History: Pt states DM II resolved since gastric bypass surgery. Hematologic History: Reports: Anemia, Blood Transfusion(s) Other Hematologic History: Pt thinks anesthesia may have caused sports on her arms. Immunologic History: Reports: None Oncologic (Cancer) History: Reports: Bladder Other Oncologic History: Pt completed chemo/radiation. Dermatologic History: Reports: Other (See Below) Other Dermatologic History: bed sore on cocyx - Infectious Disease History Infectious Disease History: Reports: C-Difficile, Chicken Pox, Measles, Rheumatic Fever, Scarlet Fever - Past Surgical History Head Surgeries/Procedures: Reports: None HEENT Surgical History: Reports: Adenoidectomy, Tonsillectomy Cardiovascular Surgical History: Reports: Coronary Artery Stent, Vascular Surgery Female Surgical History: Reports: Section, Cystoscopy, Hysterectomy , Oophorectomy, Other (See Below) Social & Family History - Family History Family Medical History: Noncontributory Cardiac: Reports: Aneurysm, CA Other Cardiac Family History: Father of CA. Sister of aneurysm. - Tobacco Use Smoking Status *Q: Former Smoker Used Tobacco, but Quit: Yes Month/Year Tobacco Last Used: 1998 - Caffeine Use Caffeine Use: Reports: Coffee - Recreational Drug Use Recreational Drug Use: No - Living Situation & Occupation Living situation: Reports: , Alone Occupation: Disabled ED ROS GENERAL - Review of Systems Review Of Systems: See Below Constitutional: Reports: Fever, Chills, Malaise, Weakness, Fatigue HEENT: Reports: Glasses Respiratory: Reports: Shortness of Breath Cardiovascular: Reports: Blood Pressure Problem. Denies: Chest Pain, Claudication, Dyspnea on Exertion, Edema, Lightheadedness, Orthopnea Endocrine: Reports: Fatigue GI/Abdominal: Reports: Nausea : Reports: Other (She has a hemodialysis patient. She does still make a small amount of urine like a teaspoon daily.) Musculoskeletal: Reports: Back Pain, Joint Pain (Knees and hips.) Skin: Reports: No Symptoms Neurological: Reports: No Symptoms Psychiatric: Reports: No Symptoms Hematologic/Lymphatic: Reports: No Symptoms ED EXAM, GENERAL - Physical Exam Exam: See Below Exam Limited By: No Limitations General Appearance: Alert, WD/WN, Other (Duration color. Is mildly warm to palpation.) Eye Exam: Right Eye: Normal Inspection (Slight pallor of the low blood flow margins appreciated.) Throat/Mouth: Normal Inspection, Normal Oropharynx, Other Head: Atraumatic, Normocephalic Neck: Normal Inspection, Supple, Non-Tender, Full Range of Motion. No: Carotid Bruit, Lymphadenopathy (L), Lymphadenopathy (R) Respiratory/Chest: Respiratory Distress (Mild tachypnea at rest 20-22/m. O2 sats 93% on room air), Rales Cardiovascular: No Gallop, JVD (3 cm below the angles of her mandibles.), Tachycardia (Resting heart rate of 1 10/m.), Systolic Murmur (Grade 1/6 at the left lateral sternal border.). No: Normal Peripheral Pulses (She has rales in both lower lobes slightly worse in the right as compared to the left) Peripheral Pulses: 1+: Posterior Tibial (L), Posterior Tibial (R), Dorsalis Pedis (L), Dorsalis Pedis (R) Back Exam: Other (Mild kyphosis thoracic spine) Extremities: Pedal Edema (Slight lower legs and feet.) Neurological: Alert, Oriented, CN II-XII Intact, Normal Cognition Psychiatric: Normal Affect, Normal Mood Skin Exam: Warm, Dry, Intact, Other (Grayish in color). No: Normal Color Course - Vital Signs Last Recorded V/S: Last Vital Signs Temp 38.0 C 10/05/18 11:22 Pulse 79 10/05/18 11:22 Resp 16 10/05/18 11:22 BP 122/86 10/05/18 11:22 Pulse Ox 95 10/05/18 11:22 - Orders/Labs/Meds Orders: Active Orders 24 hr Category Date Time Status Oxygen Therapy, ED [RC] ASDIRECTED Care 10/05/18 04:03 Active CULTURE BLOOD [BC] Stat Lab 10/05/18 06:03 Received CULTURE BLOOD [BC] Stat Lab 10/05/18 06:15 Received CULTURE URINE [RM] Stat Lab 10/05/18 05:00 Received Blood Culture x2 Reflex Set [OM.PC] Stat Oth 10/05/18 05:41 Ordered Labs: Laboratory Tests 10/05/18 10/05/18 10/05/18 Range/Units 04:35 04:35 05:00 WBC 10.15 H (3.98-10.04) K/mm3 RBC 3.21 L (3.98-5.22) M/mm3 Hgb 10.7 L (11.2-15.7) gm/L Hct 33.8 L (34.1-44.9) % MCV 105.3 H (79.4-94.8) fl MCH 33.3 H (25.6-32.2) pg MCHC 31.7 L (32.2-35.5) g/dl RDW Std Deviation 51.6 H (36.4-46.3) fL Plt Count 171 L (182-369) K/mm3 MPV 9.9 (9.4-12.3) fl Neut % (Auto) 93.7 H (34.0-71.1) % Lymph % (Auto) 2.7 L (19.3-51.7) % Oliver % (Auto) 3.2 L (4.7-12.5) % Eos % (Auto) 0 L (0.7-5.8) Baso % (Auto) 0.1 (0.1-1.2) % Neut # (Auto) 9.52 H (1.56-6.13) K/mm3 Lymph # (Auto) 0.27 L (1.18-3.74) K/mm3 Oliver # (Auto) 0.32 (0.24-0.36) K/mm3 Eos # (Auto) 0.00 L (0.04-0.36) K/mm3 Baso # (Auto) 0.01 (0.01-0.08) K/mm3 Manual Slide Review Abnormal smear Sodium 136 (136-145) mEq/L Potassium 5.9 H (3.5-5.1) mEq/L Chloride 95 L (98-107) mEq/L Carbon Dioxide 23 (21-32) mEq/L Anion Gap 23.9 H (5-15) BUN 80 H (7-18) mg/dL Creatinine 9.4 H (0.55-1.02) mg/dL Est Cr Clr Drug Dosing 5.51 mL/min Estimated GFR (MDRD) 4 (>60) mL/min BUN/Creatinine Ratio 8.5 L (14-18) Glucose 161 H (80-115) mg/dL Calcium 6.3 L (8.5-10.1) mg/dL Total Bilirubin 0.7 (0.2-1.0) mg/dL AST 42 H (15-37) U/L ALT 38 (14-59) U/L Alkaline Phosphatase 127 H (46-116) U/L Total Protein 7.3 (6.4-8.2) g/dl Albumin 3.1 L (3.4-5.0) g/dl Globulin 4.2 gm/dL Albumin/Globulin Ratio 0.7 L (1-2) Urine Color Yellow (Yellow) Urine Appearance Cloudy H (Clear) Urine pH 7.0 (5.0-8.0) Ur Specific [place] 1.020 (1.005-1.030) Urine Protein 2+ H (Negative) Urine Glucose (UA) Negative (Negative) Urine Ketones Trace H (Negative) Urine Occult Blood 2+ H (Negative) Urine Nitrite Negative (Negative) Urine Bilirubin Negative (Negative) Urine Urobilinogen 0.2 (0.2-1.0) Ur Leukocyte Esterase 2+ H (Negative) Urine RBC 10-20 H (0-5) /hpf Urine WBC 20-30 H (0-5) /hpf Ur Epithelial Cells 0-5 (0-5) /hpf Urine Bacteria Moderate H (FEW) /hpf Urine Mucus Few (FEW) /hpf Meds: Medications Discontinued Medications Generic Name Dose Route Start Last Admin Trade Name Freq PRN Reason Stop Dose Admin Ceftriaxone Sodium Confirm 10/05/18 11:33 10/05/18 12:26 Rocephin Administered 10/05/18 11:34 Not Given Dose 2 gm IV .STK-MED ONE Hydromorphone HCl 0.5 mg 10/05/18 05:00 Dilaudid IVPUSH Q2H PRN Abdominal Pain Hydromorphone HCl 0.5 mg 10/05/18 05:04 10/05/18 05:08 Dilaudid IVPUSH 10/05/18 05:05 0.5 mg ONETIME ONE Administration Hydromorphone HCl Confirm 10/05/18 05:04 10/05/18 05:49 Dilaudid Administered 10/05/18 05:05 Not Given Dose 1 mg .ROUTE .STK-MED ONE Ceftriaxone Sodium 1 gm/ 100 mls @ 200 mls/hr 10/05/18 05:57 10/05/18 12:26 Sodium Chloride IV 10/05/18 06:26 Not Given ONETIME ONE Ceftriaxone Sodium 2 gm/ 100 mls @ 200 mls/hr 10/05/18 11:45 10/05/18 11:49 Sodium Chloride IV 200 mls/hr Q24H DEV Administration Ceftriaxone Sodium 2 gm/ 100 mls @ 200 mls/hr 10/05/18 11:49 10/05/18 12:27 Sodium Chloride IV 10/05/18 12:18 Not Given ONETIME ONE - Radiology Interpretation Free Text/Narrative:: 68-year-old female presents to the ED for evaluation of low-grade fever and flulike symptoms for the last few days. Is a hemodialysis patient and is scheduled for dialysis this morning. Dr. Davis seen her initially and identified that she had a urinary tract infection. Because of fever and chills this most likely represents an upper urinary tract infection or pyelonephritis. Decision made to send her to dialysis and have her return to the ED for IV antibiotics after dialysis. I picked her up in terms of care after she returned to the ED after dialysis treatment. She still had a low-grade fever. She had received Tylenol 650 mg about 45 minutes before coming to the ED. - Re-Assessments/Exams Free Text/Narrative Re-Assessment/Exam: 10/05/18 09:27 patient is to return to the ED after finishing her dialysis run this morning. She is febrile and suffering generalized myalgias likely due to urinary tract infection according to Dr. Davis. He believes she may require admission to the hospital. She is to be reevaluated after dialysis treatment in the ED. I did look at her chest x-ray shows a tortuous thoracic aorta right- sided infusion catheter is noted for dialysis. Nodular densities are noted within the right upper lung which appears stable and most likely due to calcifications. Slight parenchymal density noted along the left lateral chest also felt to be stable due to pleural thickening and probable calcification. No acute parenchymal changes appreciated scoliosis of the thoracic spine appreciated. 10/05/18 11:33 patient has returned from dialysis as instructed by Dr. Davis. She's feeling somewhat improved after dialysis treatment. She's been given Tylenol about 45 minutes ago and she remains mildly afebrile. She feels that she can still eat and drink. Void to give HER-2 grams of Rocephin intravenously now for suspect urinary tract infection. Also will be started on Macrobid 100 mg twice daily. She will return tomorrow morning for a second dose of Rocephin 2 g IV. An outpatient. She does not need to be admitted or transferred to [place] because she is a dialysis patient. She is okay with this treatment plan and she can stay with her [id number] here in [place] instead of having to return to [place]. Outpatient orders were written for her to return for 2 g of Rocephin IV tomorrow morning. Sitting saline lock will be left in place until after finishing antibiotics tomorrow. Departure - Departure Time of Disposition: 12:59 Disposition: Home, Self-Care 01 Condition: Fair Clinical Impression: Chronic renal insufficiency, stage V, Hemodialysis patient Urinary tract infection Qualifiers: Urinary tract infection type: acute cystitis Hematuria presence: without hematuria Qualified Code(s): N30.00 - Acute cystitis without hematuria - Discharge Information *PRESCRIPTION DRUG MONITORING PROGRAM REVIEWED*: Not Applicable *COPY OF PRESCRIPTION DRUG MONITORING REPORT IN PATIENT MAGAN: Not Applicable Prescriptions: Nitrofurantoin Monohyd/M-Cryst [Macrobid 100 mg Capsule] 100 mg PO BID #16 capsule Instructions: Urinary Tract Infection, Adult, End-Stage Kidney Disease Referrals: Denny Balderas MD [Primary Care Provider] - Forms: ED Department Discharge Additional Instructions: Evaluation the emergency room today in regards to development of fever and some chills. Revealed a mildly elevated white count . The urine tested positive for infective process with 20-30 white blood cells by [facility]. Urine culture ordered. He went to dialysis and completed a 4 hour run. Tylenol was given 45 minutes before arrival in the ED. Low-grade fever persists. Given Rocephin 2 g intravenously while in the ED. Need to start oral antibiotic Macrobid 100 mg twice daily for the next 8 days. This should be taken with little food. Tomorrow around noon if possible to have another dose of intravenous Rocephin 2 g given intravenously due to being immunocompromise from your hemodialysis. After this he should not require any further antibiotic therapy and fever should go away. Continue Tylenol 50 mg every 4-6 hours needed for fever and body ache relief. Return to the hospital if you if you start vomiting and on unable to keep down oral meds. - My Orders Last 24 Hours: My Active Orders 10/05/18 05:00 CULTURE URINE [RM] Stat - Assessment/Plan Last 24 Hours: My Active Orders 10/05/18 05:00 CULTURE URINE [RM] Stat
[2018-10-05] MEDS ORDERED: cefTRIAXone 2 GM AdvVial IV ONE (11:33)
[2018-10-05] MEDS ORDERED: cefTRIAXone 2 GM in Sodium Chloride 0.9% 100 ML IV SCH (11:45)
[2018-10-05] MEDS ORDERED: cefTRIAXone 2 GM in Sodium Chloride 0.9% 100 ML IV ONE (11:49)
[2018-10-05 13:20] VITALS: BP 131/118
== END 2018-10-05 13:10 | disposition home or self-care (01) ==
LOC: JD.ED 03:44
DX: N30.00 Acute cystitis without hematuria (principal); I12.0 Hypertensive chronic kidney disease with stage 5 chronic kidney disease or end stage renal disease; I50.9 Heart failure, unspecified; N18.5 Chronic kidney disease, stage 5; E11.22 Type 2 diabetes mellitus with diabetic chronic kidney disease; R05 Cough; Z88.1 Allergy status to other antibiotic agents; Z87.891 Personal history of nicotine dependence; Z79.899 Other long term (current) drug therapy; Z99.2 Dependence on renal dialysis; Z79.01 Long term (current) use of anticoagulants
CPT/HCPCS: 36415; 71046; 80053; 81001; 85025; 87040; 87086; 87804; 96365; 96375; 99285; J0696; J1170; J7030; 99284

== ENCOUNTER 2018-11-14 21:12 | Emergency (ER) | payer MEDICARE, MEDICAID ==
[2018-11-14] MEDS ORDERED: HYDROmorphone 1 MG/ML Syringe IVPUSH ONE ×2 (21:22→22:32)
[2018-11-14] MEDS ORDERED: Metoclopramide 10 MG/2 ML SDV IVPUSH ONE (21:22)
--- NOTE | 2018-11-14 21:26 | EDM.PDOC ---
ED HPI GENERAL MEDICAL PROBLEM - General Chief Complaint: Abdominal Pain Stated Complaint: [facility] Time Seen by Provider: 11/14/18 21:18 Source of Information: Reports: Patient History Limitations: Reports: No Limitations - History of Present Illness INITIAL COMMENTS - FREE TEXT/NARRATIVE: 68-year-old female presents to the ED per [facility] with severe upper and mid abdominal pain that started about 1500 hrs. today. She last had a piece of banana bread about 1430 hrs. today. He is nauseated and having some reflux but has not had formal emesis. Paramedics did give her Dilaudid intravenously and she did get very nauseated from this. This did cause of brash water reflux but no real vomiting. She describes the pain is constant severe and on the frontal part of her abdomen with no radiation to her back. She reports she had her gallbladder out in August 2018. This is different type of pain. She states she is burping and belching to try and help relieve some of the discomfort. She can't identify whether she's passing any flatus over the last several hours. No previous abdominal surgeries. She is a hemodialysis patient. She did have her dialysis on Thursday or yesterday November 13 per her usual schedule. is also a total bowel hysterectomy and a second surgery for oophorectomy as well as C-sections performed in the past. Onset: Today Onset Date: 11/14/18 Onset Time: 15:00 Duration: Hour(s):, Constant, Other Location: Reports: Abdomen (2 minimally gets worse I there is a colicky component to her pain mostly periumbilical and upper abdomen) Quality: Reports: Other Severity: Severe (Gerhard deep aching severe pain. Tentatively 10) Improves with: Reports: None Worsens with: Reports: None Context: Reports: Other. Denies: Activity, Exercise, Lifting, Sick Contact, Trauma Associated Symptoms: Reports: Loss of Appetite, Nausea/Vomiting, Shortness of Breath. Denies: Confusion, Chest Pain (Spontaneous occurrence), Cough, cough w sputum, Diaphoresis, Fever/Chills, Headaches, Malaise, Rash, Seizure (Nausea with reflux but no formal vomiting) Treatments CURRICULUM DEVELOPER: Reports: Other (see below) (Feels more short of breath because the breathing makes the abdominal pain worse.) Abdominal Pain Score (Numeric/FACES): 4 - Related Data Allergies Allergy/AdvReac Type Severity Reaction Status Date / Time amoxicillin Allergy Other Verified 11/14/18 21:15 ciprofloxacin [From Cipro] Allergy Blisters Verified 11/14/18 21:15 ciprofloxacin HCl Allergy Blisters Verified 11/14/18 21:15 [From Cipro] Home Meds: Home Meds Allopurinol [Zyloprim] 100 mg PO DAILY 10/08/14 [History] Darbepoetin [place] in [place]ysorbat [Aranesp] 50 mcg IM ASDIRECTED 10/08/14 [History] Furosemide [Lasix] 40 mg PO BID 10/08/14 [History] Pravastatin [Pravachol] 40 mg PO DAILY 10/08/14 [History] Vit 90/Iron Fum/Folic [ Formula] 1 each PO DAILY 10/08/14 [ History] Verapamil HCl 360 mg PO DAILY 10/08/14 [History] amLODIPine [Norvasc] 5 mg PO DAILY 10/08/14 [History] Sodium Bicarbonate 648 mg PO BID 02/18/15 [History] Calcium Acetate [PhosLo] 2,001 mg PO ASDIRECTED 04/14/16 [History] Ferrous Sulfate 650 mg PO DAILY 04/14/16 [History] Iron Sucrose Complex [Venofer] 100 mg IV WEEKLY 04/14/16 [History] Paricalcitol 6 mcg IJ TUTHSA 04/14/16 [History] Acetaminophen 650 mg PO ASDIRECTED PRN 04/21/16 [History] Aspirin [Halfprin] 81 mg PO ASDIRECTED 04/21/16 [History] Cyanocobalamin (Vitamin B-12) [B-12] 500 mcg PO DAILY 04/21/16 [History] Metoprolol Tartrate 75 mg PO DAILY 12/08/17 [History] Sevelamer Carbonate [Renvela] 1 tab PO ASDIRECTED 02/02/18 [History] Past Medical History HEENT History: Reports: Impaired Vision Other HEENT History: wears eyeglasses Cardiovascular History: Reports: Afib, CAD, Heart Failure, High Cholesterol, Hypertension Respiratory History: Reports: SOB Other Respiratory History: Pt states the last couple month she's had more trouble breathing and fld. on her lungs. 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 Psychiatric History: Reports: None Other Psychiatric History: states was depressed when finding out of having cancer. Endocrine/Metabolic History: Reports: Diabetes, Type II, Obesity/BMI 30+ Other Endocrine/Metabolic History: Pt states DM II resolved since gastric bypass surgery. Hematologic History: Reports: Anemia, Blood Transfusion(s) Other Hematologic History: Pt thinks anesthesia may have caused sports on her arms. Immunologic History: Reports: None Oncologic (Cancer) History: Reports: Bladder Other Oncologic History: Pt completed chemo/radiation. Dermatologic History: Reports: Other (See Below) Other Dermatologic History: bed sore on cocyx - Infectious Disease History Infectious Disease History: Reports: C-Difficile, Chicken Pox, Measles, Rheumatic Fever, Scarlet Fever - Past Surgical History Head Surgeries/Procedures: Reports: None HEENT Surgical History: Reports: Adenoidectomy, Tonsillectomy Cardiovascular Surgical History: Reports: Coronary Artery Stent, Vascular Surgery Female Surgical History: Reports: Section, Cystoscopy, Hysterectomy , Oophorectomy, Other (See Below) Social & Family History - Family History Family Medical History: Noncontributory Cardiac: Reports: Aneurysm, [place] Other Cardiac Family History: Father of [place]. Sister of aneurysm. - Caffeine Use Caffeine Use: Reports: Coffee - Living Situation & Occupation Living situation: Reports: , Alone Occupation: Disabled ED ROS GENERAL - Review of Systems Review Of Systems: See Below Constitutional: Reports: Fatigue (Chronically). Denies: Fever, Chills, Malaise , Weakness HEENT: Reports: Glasses Respiratory: Reports: Shortness of Breath, Cough (Occasional cough usually not much sputum.). Denies: Wheezing, Pleuritic Chest Pain Cardiovascular: Reports: Blood Pressure Problem, Dyspnea on Exertion (Usually a little edema in her lower extremities), Edema. Denies: Chest Pain, Claudication (Due to renal failure), Lightheadedness, Orthopnea Endocrine: Reports: Fatigue ( chronically) GI/Abdominal: Reports: Abdominal Pain (History of present illness), Other ( Normal bowel movement earlier this morning without blood.) : Reports: Other (Little urine. Perhaps a teaspoon over 2 days) Musculoskeletal: Reports: Back Pain, Joint Pain Skin: Reports: Pallor (Chronic anemia), Bruising (Knees hips and shoulders at times loses easily.) Neurological: Reports: No Symptoms Psychiatric: Reports: No Symptoms Hematologic/Lymphatic: Reports: No Symptoms ED EXAM, GI/ABD - Physical Exam Exam: See Below Exam Limited By: No Limitations General Appearance: Alert, WD/WN, Moderate Distress (He is obviously very uncomfortable. Sitting on the edge of the bed.) Eyes: Bilateral: Pale Conjunctiva (No scleral icterus.) Throat/Mouth: Normal Inspection, Normal Lips, Normal Oropharynx Neck: Normal Inspection, Supple, Non-Tender, Full Range of Motion. No: Lymphadenopathy (L), Lymphadenopathy (R) Respiratory/Chest: No Respiratory Distress, Lungs Clear, Normal Breath Sounds, Chest Non-Tender Cardiovascular: Normal Peripheral Pulses, Regular Rate, Rhythm, No Edema, No Gallop, No Murmur, No Rub GI/Abdominal Exam: Abnormal Bowel Sounds ( Is a very active in all 4 quadrants hyperactive ), Other (Abdomen is diffusely distended and very firm palpation. Slight tympany to percussion upper abdomen. The abdominal girth limits of ability to palpate a lace any solid organs unable to localize any specific area of tenderness or). No: Guarding, Rigid, Rebound ( hernia.), Tender Back Exam: Normal Inspection, Full Range of Motion. No: CVA Tenderness (L), CVA Tenderness (R) Extremities: Normal Inspection, Normal Range of Motion, Non-Tender, No Pedal Edema Neurological: Alert, Oriented, CN II-XII Intact, Normal Cognition Psychiatric: Normal Affect, Normal Mood Skin Exam: Warm, Dry, Intact, Normal Color, Pallor (Mild pallor) EKG INTERPRETATION EKG Date: 11/14/18 Time: 21:33 Rhythm: NSR Rate (Beats/Min): 99 [place]: LAD-Left [place] Deviation (-76. Left anterior fascicular block pattern) P-Wave: Present (Bifid P-wave suggestive of possible right atrial hypertrophy) QRS: Other (There Q waves V1 and V2 V3 V4 compatible with an old large anteroseptal myocardial infarction. Poor R-wave progression. There are Q waves to 3 and aVF compatible with an old inferior wall myocardial infarction as well. ) ST-T: Other (T-wave flattening in aVL.) QT: Normal EKG Interpretation Comments: Abnormal ECG with no signs of acute ischemia Course - Vital Signs Last Recorded V/S: Last Vital Signs Temp 37.4 C 11/14/18 21:16 Pulse 100 11/14/18 21:16 Resp 20 11/14/18 21:16 BP 113/101 H 11/14/18 21:16 Pulse Ox 95 11/14/18 21:16 - Orders/Labs/Meds Orders: Active Orders 24 hr Category Date Time Status EKG Documentation Completion [RC] STAT Care 11/14/18 21:24 Active Nasogastric Tube Management [Gastrointestinal Tube Mgmt Care 11/14/18 22:21 Active ] [RC] ASDIRECTED Abdomen 1V Flat [CR] Stat Exams 11/14/18 21:25 Taken Chest 1V Frontal [CR] Stat Exams 11/14/18 21:24 Taken Sodium Chloride 0.9% [Normal Saline] 1,000 ml Med 11/14/18 21:30 Active IV ASDIRECTED Nasogastric Orogastric Tube Insertion [OM.PC] Routine Oth 11/14/18 22:21 Ordered Medication Orders Sodium Chloride (Normal Saline) 1,000 mls @ 75 mls/hr IV ASDIRECTED DEV Last Admin: 11/14/18 22:26 Dose: 75 mls/hr Labs: Laboratory Tests 11/14/18 11/14/18 11/14/18 Range/Units 22:05 22:05 22:05 WBC 9.00 (3.98-10.04) K/mm3 RBC 4.08 (3.98-5.22) M/mm3 Hgb 13.5 (11.2-15.7) gm/L Hct 43.2 (34.1-44.9) % MCV 105.9 H (79.4-94.8) fl MCH 33.1 H (25.6-32.2) pg MCHC 31.3 L (32.2-35.5) g/dl RDW Std Deviation 52.8 H (36.4-46.3) fL Plt Count 199 (182-369) K/mm3 MPV 9.9 (9.4-12.3) fl Neutrophils % (Manual) 83 H (40-60) % Band Neutrophils % 10 (0-10) % Lymphocytes % (Manual) 1 L (20-40) % Atypical Lymphs % 0 % Monocytes % (Manual) 6 (2-10) % Eosinophils % (Manual) 0 L (0.7-5.8) % Basophils % (Manual) 0 L (0.1-1.2) Platelet Estimate Adequate Plt Morphology Comment Normal Hypochromasia 1+ slight Anisocytosis 1+ slight Macrocytosis 2+ moderate Ovalocytes 2+ moderate RBC Morph Comment Not Reportable PT 10.7 (9.5-12.1) SECONDS INR 0.98 APTT 30 (24-31) SECONDS Sodium 133 L (136-145) mEq/L Potassium 6.2 H* (3.5-5.1) mEq/L Chloride 94 L (98-107) mEq/L Carbon Dioxide 23 (21-32) mEq/L Anion Gap 22.2 H (5-15) BUN 58 H (7-18) mg/dL Creatinine 7.2 H (0.55-1.02) mg/dL Est Cr Clr Drug Dosing 7.19 mL/min Estimated GFR (MDRD) 6 (>60) mL/min BUN/Creatinine Ratio 8.1 L (14-18) Glucose 200 H (80-115) mg/dL Lactic Acid (0.4-2.0) mmol/L Calcium 8.6 (8.5-10.1) mg/dL Magnesium 2.5 H (1.8-2.4) mg/dl Total Bilirubin 0.6 (0.2-1.0) mg/dL GGT 18 (5-55) U/L AST 25 (15-37) U/L ALT 34 (14-59) U/L Alkaline Phosphatase 143 H (46-116) U/L CK-MB (CK-2) 1.1 (0-3.6) ng/ml Troponin I 0.027 (0.00-0.056) ng/mL C-Reactive Protein 0.9 (<1.0) mg/dL NT-Pro-B Natriuret Pep (0-125) pg/mL Total Protein 8.3 H (6.4-8.2) g/dl Albumin 4.1 (3.4-5.0) g/dl Globulin 4.2 gm/dL Albumin/Globulin Ratio 1.0 (1-2) Lipase 488 H (73-393) U/L 11/14/18 11/14/18 Range/Units 22:05 22:05 WBC (3.98-10.04) K/mm3 RBC (3.98-5.22) M/mm3 Hgb (11.2-15.7) gm/L Hct (34.1-44.9) % MCV (79.4-94.8) fl MCH (25.6-32.2) pg MCHC (32.2-35.5) g/dl RDW Std Deviation (36.4-46.3) fL Plt Count (182-369) K/mm3 MPV (9.4-12.3) fl Neutrophils % (Manual) (40-60) % Band Neutrophils % (0-10) % Lymphocytes % (Manual) (20-40) % Atypical Lymphs % % Monocytes % (Manual) (2-10) % Eosinophils % (Manual) (0.7-5.8) % Basophils % (Manual) (0.1-1.2) Platelet Estimate Plt Morphology Comment Hypochromasia Anisocytosis Macrocytosis Ovalocytes RBC Morph Comment PT (9.5-12.1) SECONDS INR APTT (24-31) SECONDS Sodium (136-145) mEq/L Potassium (3.5-5.1) mEq/L Chloride (98-107) mEq/L Carbon Dioxide (21-32) mEq/L Anion Gap (5-15) BUN (7-18) mg/dL Creatinine (0.55-1.02) mg/dL Est Cr Clr Drug Dosing mL/min Estimated GFR (MDRD) (>60) mL/min BUN/Creatinine Ratio (14-18) Glucose (80-115) mg/dL Lactic Acid 1.6 (0.4-2.0) mmol/L Calcium (8.5-10.1) mg/dL Magnesium (1.8-2.4) mg/dl Total Bilirubin (0.2-1.0) mg/dL GGT (5-55) U/L AST (15-37) U/L ALT (14-59) U/L Alkaline Phosphatase (46-116) U/L CK-MB (CK-2) (0-3.6) ng/ml Troponin I (0.00-0.056) ng/mL C-Reactive Protein (<1.0) mg/dL NT-Pro-B Natriuret Pep 6130 H (0-125) pg/mL Total Protein (6.4-8.2) g/dl Albumin (3.4-5.0) g/dl Globulin gm/dL Albumin/Globulin Ratio (1-2) Lipase (73-393) U/L Meds: Medications Generic Name Dose Route Start Last Admin Trade Name Randa PRN Reason Stop Dose Admin Sodium Chloride 1,000 mls @ 75 mls/hr 11/14/18 21:30 11/14/18 22:26 Normal Saline IV 75 mls/hr ASDIRECTED DEV Administration Discontinued Medications Generic Name Dose Route Start Last Admin Trade Name Randa PRN Reason Stop Dose Admin Dextrose/Water Confirm 11/14/18 23:09 Dextrose 50% In Water Administered 11/14/18 23:10 Dose 50 ml .ROUTE .STK-MED ONE Hydromorphone HCl 0.5 mg 11/14/18 21:22 11/14/18 22:29 Dilaudid IVPUSH 11/14/18 21:23 0.5 mg ONETIME ONE Administration Hydromorphone HCl 1 mg 11/14/18 22:32 11/14/18 23:13 Dilaudid IVPUSH 11/14/18 22:33 1 mg ONETIME ONE Administration Insulin Human Regular Confirm 11/14/18 23:10 Humulin R Administered 11/14/18 23:11 Dose 300 unit .ROUTE .STK-MED ONE Lidocaine HCl 10 ml 11/14/18 22:20 11/14/18 22:37 Xylocaine 2% Jelly MUCMEM 11/14/18 22:21 10 ml ONETIME ONE Administration Metoclopramide HCl 10 mg 11/14/18 21:22 11/14/18 22:27 Reglan IVPUSH 11/14/18 21:23 10 mg ONETIME ONE Administration Ondansetron HCl 4 mg 11/14/18 22:32 11/14/18 23:12 Zofran IVPUSH 11/14/18 22:33 4 mg ONETIME ONE Administration - Radiology Interpretation Free Text/Narrative:: 68-year-old female presents to the ED with severe periumbilical abdominal pain that started about 1500 hrs. today. Pain is constant with an intermittent colicky component. She's burping and belching excessively to try and relieve the discomfort. Pain does not radiate through to her back. She reports her abdomen is obese and grossly distended. She can't appreciate that she's passing any flatus per rectum. She has had numerous previous abdominal surgeries including C-sections and total abdominal hysterectomy and a separate surgery for oophorectomy and recent laparoscopic cholecystectomy in August last year she has evidence of bowel obstruction. Of note she is a hemodialysis patient with last dialysis performed yesterday per her usual. Plan IV normal saline at 75 mils per hour. Will be given Dilaudid 1 mg IV with Reglan 10 mg IV for pain relief. One view chest x-ray one view of the abdomen to be obtained. Routine labs to include lactic acid level. Lipase is well. - Re-Assessments/Exams Free Text/Narrative Re-Assessment/Exam: 11/14/18 22:23 chest x-ray done portably reveals borderline cardiomegaly. She has a Port-A-Cath right upper anterior chest. Slight prominence of the thoracic aorta appreciated. There is diffuse vascular congestion pattern without pleural effusion. KUB reveals multiple dilated loops of small bowel compatible with bowel obstruction. Nasogastric tube will be placed on continuous intermittent suction. Because she is a hemodialysis patient she will be sent to [facility] for definitive management This with them whether they wish us to pursue oral CT examination at this time. 11/14/18 22:30: I spoke with bench precision assembler hospitalist at [facility] in [place]. Dr. Fontanez hospitalist has accepted care of this time and the patient be transferred there per ground ambulance. The CT of the abdomen was therefore not performed here and can be carried out there if deemed necessary. Labs are still pending. 11/14/18 23:20 Labs reveal a white count of 9.00 with 83% neutrophils and 10% bands. Hemoglobin is 13.5 with hematocrit of 43.2. MCV is elevated at 105.9 due to renal disease. PERRLA comes 199,000. PT is 10.7 with an INR of 0.98. PTT is 30. Sodium was 133. Potassium is mildly elevated at 6.2. Chloride 94 with a bicarbonate of 23. And a gap is elevated at 22.2. BUN is 58 with a creatinine of 7.2. Creatinine clearances 6. BUN is 8.1. Glucose is 200. Lactic acid 1.6. Calcium 8.6. Magnesium mildly elevated at 2.5. Total bilirubin is 0.6. GGT is 18 AST is 25 ALT is 34. Alk phosphatase slightly elevated at 143. CK-MB fraction is 1.1. Troponin I is less than 0.027. C-reactive protein 0.9. ENT is elevated at 6130. Total protein 8.3 with an albumin fraction of 4.1. Serum lipase is mildly elevated at 488 with normal lal lab being up to 393. Patient be given insulin 10 units IV bolus with one half amp of D50 due to mild hyper ketonemia at 6.2. Sincerely now to provide transport to [facility] Departure - Departure Time of Disposition: 23:20 Disposition: DC/Tfer to Acute Hospital 02 Condition: Serious Clinical Impression: Small bowel obstruction, Hemodialysis patient, Hyperkalemia, Elevated lipase - Discharge Information *PRESCRIPTION DRUG MONITORING PROGRAM REVIEWED*: Not Applicable *COPY OF PRESCRIPTION DRUG MONITORING REPORT IN PATIENT MAGAN: Not Applicable Forms: ED Department Discharge Additional Instructions: transferred to [facility] for definitive management of small bowel obstruction as she is a hemodialysis patient. She did receive 10 units of regular insulin intravenously as well as a half amp of D50 percent for mild hyperkalemia. Patient's blood sugar is 200 - My Orders Last 24 Hours: My Active Orders 11/14/18 21:24 EKG Documentation Completion [RC] STAT Chest 1V Frontal [CR] Stat 11/14/18 21:25 Abdomen 1V Flat [CR] Stat 11/14/18 21:30 Sodium Chloride 0.9% [Normal Saline] 1,000 ml IV ASDIRECTED 11/14/18 22:21 Nasogastric Tube Management [Gastrointestinal Tube Mgmt] [RC] ASDIRECTED Nasogastric Orogastric Tube Insertion [OM.PC] Routine - Assessment/Plan Last 24 Hours: My Active Orders 11/14/18 21:24 EKG Documentation Completion [RC] STAT Chest 1V Frontal [CR] Stat 11/14/18 21:25 Abdomen 1V Flat [CR] Stat 11/14/18 21:30 Sodium Chloride 0.9% [Normal Saline] 1,000 ml IV ASDIRECTED 11/14/18 22:21 Nasogastric Tube Management [Gastrointestinal Tube Mgmt] [RC] ASDIRECTED Nasogastric Orogastric Tube Insertion [OM.PC] Routine
[2018-11-14] MEDS ORDERED: Sodium Chloride 0.9% 1,000 ML IV SCH (21:30)
[2018-11-14] MEDS ORDERED: Lidocaine 2% Jelly 10 ML Urojet MUCMEM ONE (22:20)
[2018-11-14] MEDS ORDERED: Ondansetron 4 MG/2 ML SDV IVPUSH ONE (22:32)
[2018-11-14] MEDS ORDERED: 50% Dextrose in Water 50 ML Syringe ONE (23:09)
[2018-11-14] MEDS ORDERED: Insulin Regular, Human 100 Units/ML 3 ML Vial ONE (23:10)
[2018-11-14] MEDS ORDERED: Insulin Regular, Human 100 Units/ML 3 ML Vial IV ONE ×2 (23:16→23:19)
[2018-11-14] MEDS ORDERED: 50% Dextrose in Water 50 ML Syringe IVPUSH STA (23:19)
[2018-11-15 01:16] VITALS: BP 158/84
--- NOTE | 2018-11-15 06:51 | CR ---
Abdomen: Supine view of the abdomen was obtained. Comparison: No prior abdominal x-ray, previous CT abdomen and pelvis exam of 08/06/18. Gas dilated small bowel is identified within the mid and left abdomen. Findings are suspicious for small bowel obstruction. Vascular calcification is seen. Surgical clips are noted within the right upper abdomen. Bony structures are osteopenic. Impression: 1. Dilated small bowel loops suspicious for small bowel obstruction. 2. Other incidental findings. Diagnostic code #3
--- NOTE | 2018-11-15 06:51 | CR ---
Chest: Frontal view of the chest was obtained. Comparison: Prior chest x-ray of 10/05/18. Heart size appears within normal limits. Tortuous thoracic aorta is noted. Right sided infusion catheter is seen. Minimal nodules are noted within the right upper chest which are stable. No acute parenchymal change is seen. Bony structures are grossly intact. Impression: 1. Incidental findings. Nothing acute is appreciated. Diagnostic code #2
== END 2018-11-14 23:30 ==
LOC: JD.ED 21:12
DX: K56.609 Unspecified intestinal obstruction, unspecified as to partial versus complete obstruction (principal); R74.8 Abnormal levels of other serum enzymes; E87.5 Hyperkalemia; E78.00 Pure hypercholesterolemia, unspecified; I10 Essential (primary) hypertension; I25.10 Atherosclerotic heart disease of native coronary artery without angina pectoris; I48.91 Unspecified atrial fibrillation; E11.9 Type 2 diabetes mellitus without complications; Z99.2 Dependence on renal dialysis; Z88.1 Allergy status to other antibiotic agents; Z79.82 Long term (current) use of aspirin
CPT/HCPCS: 36415; 71045; 74018; 80053; 82553; 82977; 83605; 83690; 83735; 83880; 84484; 85007; 85027; 85610; 85730; 86140; 93005; 96361; 96374; 96375; 96376; 99285; J1170; J2405; J2765; J7040; J7060; 93010